=== PATIENT | female | born 1970 | race Caucasian/White ===

== ENCOUNTER → 2017-11-10 08:28 | Outpatient (CLI) | payer OTHER, SELFPAY ==
--- NOTE | 2017-11-10 08:39 | BI_ITS ---
MAMMOGRAPHY - BILATERAL SCREENING 3-D LUIS FELIPE SYNTHESIS REASON FOR EXAM: Female, 47 years old. Bilateral Screening 3-D tomosynthesis PERTINENT HISTORY: No significant family history. TECHNIQUE: 2-D mammograms and 3-D Luis Felipe synthesis of the breast (s) were performed. CAD was performed. COMPARISON: 11/07/2016 FINDINGS: The breast composition is composed of scattered fibroglandular density. Scattered benign calcifications are seen. No dense spiculated masses or suspicious microcalcifications are identified. No architectural distortion is identified. There is no skin thickening or retraction. There has been no significant change since the prior study. BI/SCREENING MAMM (CAD), BILAT IMPRESSION: No mammographic signs of malignancy. Routine yearly mammograms recommended. ASSESSMENT CATEGORY: BIRADS Category 1: Negative. A letter regarding these results will be sent to the patient by the facility within 30 days. FOLLOW UP RECOMMENDATION: Yearly follow up mammogram recommended. (A) Approximately 10% of breast cancers are not detected by mammography. A normal mammogram should not delay biopsy of a clinically suspicious abnormality. Electronically Signed: Uday Monae MD at 8:07 EDT , Service support ,
== END ==
PROVIDERS: Family Provider Internal Medicine; PCP Internal Medicine; Visit Provider Obstetrics & Gynecology
DX: Z12.31 Encounter for screening mammogram for malignant neoplasm of breast (principal)
CPT/HCPCS: 77063; 77067

== ENCOUNTER → 2018-11-10 13:24 | Outpatient (CLI) | payer OTHER, SELFPAY ==
[2018-11-10 11:09] VITALS: BMI 20.4
== END ==
PROVIDERS: Family Provider Internal Medicine; PCP Internal Medicine; Referring Provider Obstetrics & Gynecology; Visit Provider Obstetrics & Gynecology
DX: R10.2 Pelvic and perineal pain (principal)
CPT/HCPCS: 87086; 87088

== ENCOUNTER → 2018-11-18 11:34 | Outpatient (CLI) | payer OTHER, SELFPAY ==
[2018-11-10 11:09] VITALS: BMI 20.4
--- NOTE | 2018-11-18 11:37 | BI_ITS ---
MAMMOGRAPHY - BILATERAL SCREENING REASON FOR EXAM: Female, 48 years old. Routine annual screening examination. PERTINENT HISTORY: Non-contributory. TECHNIQUE: Digital bilateral breast luis felipe (3D mammographic acquisition) in the CC and MLO projections. 2-D mediolateral oblique (MLO) and craniocaudad (CC) views of both breasts were obtained. CAD: Full Field Digital Mammography with Computer Added Detection was performed. COMPARISON: Comparison is made with prior study dated November 10, 2017 and November 07, 2016. FINDINGS: Breast Composition: The breasts are heterogeneously dense, which may obscure small masses. There are no dominant masses or suspicious calcifications. No other significant abnormalities are identified. There has been no significant change since the prior study. BI/SCREEN MAMM (CAD) W/LUIS FELIPE BILAT IMPRESSION: Stable bilateral screening mammogram. Yearly follow-up mammogram recommended. (A) ASSESSMENT CATEGORY: BIRADS Category 1: Negative. A letter regarding these results will be sent to the patient by the facility within 30 days. Approximately 10% of breast cancers are not detected by mammography. A normal mammogram should not delay biopsy of a clinically suspicious abnormality. [id number] Electronically Signed: Santiago Vargas, at 13:50 EDT , Service support ,
== END ==
PROVIDERS: Family Provider Internal Medicine; PCP Internal Medicine; Referring Provider Internal Medicine; Visit Provider Internal Medicine
DX: Z12.31 Encounter for screening mammogram for malignant neoplasm of breast (principal); Z78.0 Asymptomatic menopausal state
CPT/HCPCS: 77063; 77067

== ENCOUNTER → 2018-11-26 08:18 | Outpatient (CLI) | payer OTHER, SELFPAY ==
[2018-11-10 11:09] VITALS: BMI 20.4
--- NOTE | 2018-11-26 08:24 | BD_ITS ---
STUDY: DUAL ENERGY X-RAY ABSORPTIOMETRY / DXA REASON FOR EXAM: Female, 48 years old. Early menopause. Loss of height. TECHNIQUE: Bone Mineral Density (BMD) measurements of lumbar spine and bilateral hips were obtained. COMPARISON: Comparison is made with prior study dated November 01, 2015. FINDINGS: Lumbar Spine (L1-L4): g/cm2 (1.073) / T-score (-0.9) / Z-score (-0.5) Findings are suggestive of normal bone density with a low fracture risk. Left Femur Total: g/cm2 (0.778) / T-score (-1.8) / Z-score (-1.4) Left Femoral Neck: g/cm2 (0.745) / T-score (-2.1) / Z-score (-1.3) Right Femur Total: g/cm2 (0.837) / T-score (-1.4) / Z-score (-0.9) Right Femoral Neck: g/cm2 (0.884) / T-score (-1.1) / Z-score (-0.3) The T-Scores on the most recent prior examination were: Lumbar Spine (L1-L4): There has been worsening of bone density since the previous examination. Left Femur Total: which represents a worsening of 3.4%. Right Femur Total: which represents a worsening of 3%. BD/Dexa Bone Density Study IMPRESSION: The patient is considered osteopenic as outlined below according to World Jeff Organization (WHO) criteria with a moderate fracture risk. There has been worsening of bone density since the previous examination. Reference Information: The T-score is the number of standard deviations above or below the standard which is normal for young adults at their peak bone mineral density. The World Health Organization (WHO) interprets the T-scores as follows: Above -1 Normal bone density Between -1 and -2.5 Osteopenia Equal to / or below -2.5 Osteoporosis As a practical clinical guideline, osteopenia may be graded as follows: Mild -1 through -1.5 Moderate -1.6 through -2.0 Severe -2.1 through -2.4 The Z-score is the number of standard deviations above or below age-matched controls. A Z-score of less than -1.5 would be considered abnormal. References: 1. NIH Osteoporosis and Related Bone Diseases http://www.osteo.org 2. International Society for Clinical Densitometry http://www.iscd.org 3. National Osteoporosis Foundation http://www.nof.org Electronically Signed: Santiago Vargas, at 15:11 EDT , Service support ,
== END ==
PROVIDERS: Family Provider Internal Medicine; PCP Internal Medicine; Referring Provider Internal Medicine; Visit Provider Internal Medicine
DX: Z78.0 Asymptomatic menopausal state (principal); M85.80 Other specified disorders of bone density and structure, unspecified site
CPT/HCPCS: 77080

== ENCOUNTER 2019-06-15 17:39 | Observation (INO) | payer OTHER, SELFPAY ==
[2019-05-31 13:37] VITALS: BMI 20.4
[2019-06-15 17:41] VITALS: BP 152/53; PULSE 83; RESP 20; TEMP 37.4; O2SAT 100; BMI 22.8
--- NOTE | 2019-06-15 17:59 | MRI_ITS ---
HISTORY: Episodes of low back pain on and off for 30 years. Most severe today. Urinary retention. Technique: Sagittal T1-T2 and STIR axial T1 and T2-weighted images were obtained through the lumbar spine. Comparison study is an x-ray of the lumbar spine from February 22, 2015. Additionally, the patient has had a CT scan of the abdomen and pelvis which provide sagittal 2-D reformats. Findings: Bony alignment is normal. Vertebral body height is normal. Some marrow edema is present within the abutting endplates at the L4-L5 level. Disc height and vertebral body height are normal except at the L3-L4 and L4-L5 intervertebral disc space levels. At those 2 levels there is loss of disc height and disc desiccation. 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 The conus medullaris is at the T12-L1 level. The gallbladder remains. The kidneys are without hydronephrosis. Visualized portions of the abdominal aorta is without aneurysm. Bowel gas pattern is normal. No adenopathy. At the L3-L4 level facet arthropathy, ligamentum flavum thickening, and disc bulge cause mild spinal canal stenosis. At the L4-L5 level facet arthropathy, ligamentum thickening cause minimal spinal canal stenosis. MRI/Spine Lumbar (Routine) IMPRESSION: Degenerative disc disease at the L3-L4 and L4-L5 levels. Facet arthropathy and ligamentum thickening contribute with this degenerative disc disease cause mild spinal canal stenosis at the L3-L4 level. No neural impingement perceived. Ongoing marrow edema indicative of current inflammatory disease at the L4-L5 level. at 2030 Reported and signed by: Chino Stover MD Electronically Signed: Chino Stover MD at 20:29 EST Tel , Service support ,
[2019-06-15] MEDS: HYDROmorphone 1 MG/ML Syringe IV (18:18)
[2019-06-15] MEDS: Ondansetron 4 MG/2 ML Vial IV ×2 (18:18→21:06)
[2019-06-15] MEDS: Orphenadrine 60 MG/2 ML Ampul IV (18:19)
[2019-06-15] MEDS: Ketorolac 15 MG/ML Vial IV (18:19)
[2019-06-15 18:23] LABS: Absolute Lymphocyte Count 1.43 X10^3/uL (0.83-4.51); Basophil# 0.02 X10^3/uL; Basophil% 0.2 % (0-1); Hematocrit 41.1 % (37-47); Hemoglobin 14.1 g/dL (12.0-15.0); Lymphocyte # 1.43 X10^3/ul (4.0); Lymphocyte % 15.8 % (19-41); Mean Corp Hgb Conc 34.3 g/dL (32-36); Mean Corpuscular Hgb 31.1 pg (27.0-32.0); Mean Corpuscular Volume 90.7 fL (81-99); Monocyte# 0.57 X10^3/uL; Monocyte% 6.3 % (0-10); NRBC Flagged by Analyzer 0 % (0-5); Neutrophil # 7.02 X10^3/uL (2.7-7.7); Neutrophil % 77.4 % (47-70); Platelet Count 323 K/mm3 (150-450); RBC Distribution Width CV 10.9 % (11.6-14.6); RBC Distribution Width SD 36.1 fl (35.1-43.9); Red Blood Count 4.53 M/mm3 (4.2-5.4); White Blood Count 9.1 K/mm3 (4.4-11.0)
[2019-06-15 18:35] LABS: Anion Gap 6 (5-15); BUN 9 mg/dL (7-18); BUN/Creat Ratio 10.6 RATIO (10-20); Calcium,Total 9.2 mg/dL (8.5-10.1); Chloride 110 mmol/L (98-107); Creatinine, Serum 0.85 mg/dL (0.55-1.02); EST Glomerular Filtration Rate 75 mL/min (>60); Est Glom Filt Rate - Afr Amer 91 mL/min (>60); Glucose 99 mg/dL (74-106); Potassium 3.6 mmol/L (3.5-5.1); Sodium Level 139 mmol/L (136-145)
--- NOTE | 2019-06-15 20:40 | ED.DCSUM_ITS ---
- ER Visit Summary Date of Service: 06/15/19 Chief Complaint: Back Pain History of Present Illness: The patient is a [address] Bray. She reports that she has back pain that began this morning. Initially it was a sharp pain it is gotten much worse is now sharp and stabbing. Is 10 on 10 at worst 9-10 currently. Is worsened by movement. She is taken muscle relaxant, ibuprofen, Percocet without relief. She denies any ration to her legs. No numbness or weakness in her legs. However, she reports that she is been unable to urinate. She has not had any fecal incontinence. She denies any groin numbness. Patient denies any recent injury. No fall, MVA, or change in activity. She has no red flags. Physical Examination: Vitals: Stable. Afebrile. General: A&O x 3. NAD. Cardiovascular exam: Regular rate and rhythm, no murmur, rub or gallop. Respiratory exam: Clear to auscultation bilaterally. No wheezes or stridor. Abdominal exam: Soft, nontender, nondistended, normal bowel sounds. No peritoneal signs. Back: Diffuse moderate tenderness to palpation over the lumbar spine and the paraspinous musculature in the lumbar region. No point tenderness. Negative straight leg bilaterally. 5/5 DF, PF, EHL bilaterally. Normal sensation to light touch throughout. Extremity: No clubbing, cyanosis, or edema. Test Results: CBC shows segmented neutrophils 77 lymphocytes of 16. Chem-7 shows a chloride of 110. LFTs are normal. Sed rate is 5. CRP is less than 2.9. Clinical Impression(s) from Imaging Studies Lumbar Spine MRI 06/15/19 17:59 IMPRESSION: Degenerative disc disease at the L3-L4 and L4-L5 levels. Facet arthropathy and ligamentum thickening contribute with this degenerative disc disease cause mild spinal canal stenosis at the L3-L4 level. No neural impingement perceived. Ongoing marrow edema indicative of current inflammatory disease at the L4-L5 level. at 2030 Reported and signed by: Chino Stover MD Electronically Signed: Chino Stover MD at 20:29 EST Tel , Service support , Emergency Department Course and Treatment: Patient was given Dilaudid, Norflex, and Toradol IV. She is still unable to even attempt to move. She was given morphine IV and Valium p.o. She still is unable to get out of bed. The catheter was placed and 1200 cc of urine returned. Treatment Plan: The patient was discussed with . She will be admitted to the hospital for further evaluation and treatment. Disposition: Admitted in improved condition. Impression: 1. Intractable low back pain. 2. Urinary retention. This note was generated with [employer] dictation software. It may contain incorrect words, spelling, and punctuation that were not noted in review of the chart prior to signing ED Disposition - Plan for ED Patient: Disposition: Home or Assisted Living Instructions: BACK SPASM, No Trauma Prescriptions: Naproxen [Naprosyn] 500 mg PO BID #14 tab Prescription Printed Oxycodone HCl/Acetaminophen [Percocet 5/325] 1 tab PO Q6H PRN PRN 5 Days #20 tab PRN Reason: Pain Score 6-10/10 Prescription Printed Diazepam [Valium] 5 mg PO Q8 PRN #10 tab PRN Reason: Muscle Spasm Prescription Printed Referrals: Elizabeth Lantigua, [Primary Care Provider] - 3-5 Days if not improving
[2019-06-15 21:06] VITALS: BP 126/55; PULSE 79; RESP 14; O2SAT 97
[2019-06-15] MEDS: Morphine 4 MG/ML Syringe IV (21:06)
--- NOTE | 2019-06-15 21:38 | ED.RN ---
THIS RN WENT TO ASSIST PATIENT UP. PT IS UNABLE TO SIT UP WITHOUT INTENSE PAIN AND BACK SPASMS. PT REMOVED FROM DISCHARGE STATUS AND PLACED BACK ON THE BOARD. DR. GALLO NOTIFIED
[2019-06-15 22:28] LABS: Erythrocyte Sedimentation Rate 5 mm/hr (0-30)
[2019-06-15 23:03] LABS: AST(SGOT) 27 U/L (15-37); Alanine Aminotransfer ALT/SGPT 37 U/L (13-56); Albumin, Serum 4.6 g/dL (3.2-5.0); Alkaline Phosphatase 75 U/L (45-117); Bilirubin, Direct 0.13 mg/dL (0.00-0.30); CRP < 2.90 mg/L (0.0-3.0); Globulin 3.6 g/dL (2.2-4.2); Protein, Total 8.2 g/dL (6.4-8.2)
[2019-06-15] MEDS: diazePAM 5 MG Tablet PO (23:03)
--- NOTE | 2019-06-16 00:19 | HP.PCM_ITS ---
History of Present Illness Date of Admission: 06/16/19 Chief Complaint: intractable back pain The patient is a 49 year old F with a PMH as outlined, who was admitted via the ED on 06/16/2019 via the ED with a complaint of back pain. Back pain started in the early hours of the morning of admission. It became so severe that she could not get out of bed without aggravating the back pain. She denied any numbness or tingling in her lower extremities or any weakness. She denied any fever chills, nausea vomiting. She states she has had back pain like this in the past but has not had such a severe episode in a long time. 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 On admission in the ED, temperature of 99.3 Fahrenheit with blood pressure of 126/55, pulse rate of 79 and respiratory rate of 14. Chemistry was unremarkable. CBC was also unremarkable and ESR and CRP were not elevated. Lumbar spine MRI showed degenerative disc disease at the L3-L4 and L4-L5 levels with facet arthropathy and ligamentum thickening with mild spinal canal stenosis at L3-L4 level. There was ongoing marrow edema indicating recurrent inflammatory disease at the L4-L5 level. ED doctor did discuss findings of marrow edema with the radiologist, who thought it was not an uncommon finding for patients 50 years and older. She is being admitted to be managed for intractable back pain. 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 Endometriosis N80.9 Raynaud's disease I73.00 Allergies Sulfa (Sulfonamide Antibiotics) Allergy (Verified 06/15/19 17:44) Rash Home Medications: Ambulatory Orders Medication Instructions Recorded multivitamin 1 tab PO QDAY 10/01/17 rosuvastatin 10 mg tablet 10 mg PO DAILY 11/10/18 estradiol 0.0375 mg/24 hr See Rx Instructions .ROUTE 05/31/19 semiweekly transdermal patch .COMPLEX #24 patch Diazepam [Valium] 5 mg PO Q8 PRN #10 tab 06/15/19 Naproxen [Naprosyn] 500 mg PO BID #14 tab 06/15/19 Oxycodone HCl/Acetaminophen 1 tab PO Q6H PRN PRN 5 Days #20 tab 06/15/19 [Percocet 5/325] Surgical History: Surgical History (Last Reviewed 05/31/19 @ 13:35 by Marion Morales) Status post total abdominal hysterectomy Z90.710 zhane bso Psychiatric History: No pertinent psych hx [employer] M[employer]ATOR History: endometriosis Lives: Spouse/ Significant Other Smoking Status: Never smoker Alcohol: None Drugs: None - *Family History Maternal History Items: No pertinent history Paternal History Items: No pertinent history Review of Systems Constitutional: Denies: Chills, Fever, Malaise, Weakness, Weight Change, Fatigue Eyes: Denies: Blurred vision HEENT: Denies: Head Aches, Sinus Congestion, Sinus Drainage Cardiovascular: Denies: Chest Pain, Palpitations Respiratory: Denies: Cough, Shortness of Breath, Shortness of breath at rest, Shortness of breath upon exertion, Sputum production Gastrointestinal: Denies: Abdominal Pain, Nausea, Vomiting Genitourinary: Denies: Dysuria Musculoskeletal: Reports: Back Pain. Denies: Joint Pain, Joint Tenderness Skin: Denies: Rash, Wounds Neurological: Denies: Numbness, Tingling, Focal weakness Psychiatric: Denies: Anxiety, Depression, Homicidal Ideations, Suicidal Ideations Hematologic/ Lymphatic: Denies: Easy Bruising, Easy Bleeding VTE Information - Inpt Only VTE Present on Admission: No VTE Pharm Prophylaxis ordered?: Yes - Physical Exam Vitals/I&O's: Vital Signs Temp Pulse Resp BP Pulse Ox 99.3 F H 79 14 126/55 H 97 06/15/19 17:41 06/15/19 21:06 06/15/19 21:06 06/15/19 21:06 06/15/19 21:06 Oxygen Delivery Method Room Air Weight: 145 lb 15.136 oz Body Mass Index (BMI) 22.8 General: Alert, Oriented x3, Cooperative, No apparent distress HEENT: Atraumatic, PERRLA, EOMI, Normocephalic Oral: Dry Mucosa Neck: Supple, No JVD, Negative Carotid Bruits Lungs: Clear to auscultation, Normal air movement Cardiovascular: Regular rate, Regular Rhythm, Normal S1, Normal S2, No murmurs Abdomen: Bowel Sounds Present, Soft, Non Tender Extremities: No clubbing, No cyanosis, No edema, Capillary Refill Less than 3 Seconds Skin: No rashes, No breakdown Musculoskeletal: No Tenderness to Palpation of Joints or Extremities, - - unable to assess for back pain as patient said it would be too painful for her to even try and sit up or turn to her side. Lymphatic: No Cervical, Supraclavicular, or Inguinal Adenopathy Neurological: Cranial nerves II-XII grossly intact, Neuro grossly intact, Motor Exam 5/5 strength throughout Psych/Mental Status: Normal Affect, Appropriate, Alert and oriented to time, place, person, mood and affect Laboratory Results 06/15/19 18:15: WBC 9.1, RBC 4.53, Hgb 14.1, Hct 41.1, MCV 90.7, MCH 31.1, MCHC 34.3, RDW Std Deviation 36.1, RDW Coeff of Sigifredo 10.9 L, Plt Count 323, MPV 10.0, Immature Gran % (Auto) 0.300, Neut % (Auto) 77.4 H, Lymph % (Auto) 15.8 L, [place] % (Auto) 6.3, Eos % (Auto) 0.0, Baso % (Auto) 0.2, Absolute Neuts (auto) 7.0, Absolute Lymphs (auto) 1.43, Nucleated RBC % 0 06/15/19 18:15: Sodium 139, Potassium 3.6, Chloride 110 H, Carbon Dioxide 23.0, Anion Gap 6, BUN 9, Creatinine 0.85, Estim Creat Clear Calc 77.00, Est GFR (MDRD) Af Amer 91, Est GFR (MDRD) Non-Af 75, BUN/Creatinine Ratio 10.6, Glucose 99, Calcium 9.2 06/15/19 18:15: Total Bilirubin 0.40, Direct Bilirubin 0.13, AST 27, ALT 37, Alkaline Phosphatase 75, C-React Prot Ext Range < 2.90, Total Protein 8.2, Albumin 4.6, Globulin 3.6 06/15/19 22:17: ESR 5 Diagnostic Data Lumbar Spine MRI 06/15/19 17:59 IMPRESSION: Degenerative disc disease at the L3-L4 and L4-L5 levels. Facet arthropathy and ligamentum thickening contribute with this degenerative disc disease cause mild spinal canal stenosis at the L3-L4 level. No neural impingement perceived. Ongoing marrow edema indicative of current inflammatory disease at the L4-L5 level. at 2030 Reported and signed by: hCino Stover MD Electronically Signed: Chino Stover MD at 20:29 EST Tel , Service support , Assessment/Plan 49-year-old patient man admitted with a complaint of intractable back pain. 1. Intractable back pain * likely due to arthritis and spinal stenosis * MRI of lumbar spine showed degenerative disease at L3-:4 and L4-L5, as well as facet arthropathy and ligamentum thickening, with mild spinal canal stenosis at L3-L4, as well as ongoing marrow edema indicative of inflammatory disease at L4-L5 * ESR and CRP are not elevated * patient has mildly elevated wbc of 13, and temperature of 99.3; there is no evidence of discitis on MRI * says she has had such pain before, which improved with PT/OT * admit to [facility]; * IV morphine prn, PO tylenol prn * fall precautions * consult PT/OT * 2. Hyperlipidemia: On rosuvastatin DVT prophylaxis: SCDs Code Visit OBSV E&M: [id number] Initial observation care L2
[2019-06-16 01:03] VITALS: BP 125/65; PULSE 85; RESP 20; TEMP 36.7; O2SAT 100
[2019-06-16 01:14] VITALS: BMI 22.9
[2019-06-16] MEDS: Morphine 4 MG/ML Syringe IV (01:16)
[2019-06-16] MEDS: 0.9% Saline Lock 10 ML Syringe IV ×3 (01:55→09:46)
[2019-06-16] MEDS: Ketorolac 30 MG/ML Syringe IV ×2 (01:56→08:57)
[2019-06-16 03:31] VITALS: BMI 22.3
[2019-06-16] MEDS: oxyCODONE 5 MG Tablet 10 MG PO ×3 (04:21→17:21)
[2019-06-16 05:54] VITALS: BP 105/50; PULSE 63; RESP 16; TEMP 36.7; O2SAT 99
[2019-06-16 06:36] LABS: Absolute Lymphocyte Count 1.28 X10^3/uL (0.83-4.51); Absolute Neutrophil Count 6.1 X10^3/uL (2.0-7.7); Basophil# 0.02 X10^3/uL; Basophil% 0.2 % (0-1); Eosinophil# 0.02 X10^3/uL; Eosinophils% 0.2 % (0-5); Hematocrit 37.8 % (37-47); Hemoglobin 12.3 g/dL (12.0-15.0); Lymphocyte # 1.28 X10^3/ul (4.0); Lymphocyte % 15.8 % (19-41); Mean Corp Hgb Conc 32.5 g/dL (32-36); Mean Corpuscular Hgb 30.9 pg (27.0-32.0); Monocyte# 0.61 X10^3/uL; Monocyte% 7.5 % (0-10); NRBC Flagged by Analyzer 0 % (0-5); Neutrophil # 6.13 X10^3/uL (2.7-7.7); Neutrophil % 76.1 % (47-70); Platelet Count 275 K/mm3 (150-450); Red Blood Count 3.98 M/mm3 (4.2-5.4); White Blood Count 8.1 K/mm3 (4.4-11.0)
[2019-06-16 07:01] LABS: Anion Gap 6 (5-15); BUN 11 mg/dL (7-18); BUN/Creat Ratio 15.1 RATIO (10-20); Calcium,Total 8.1 mg/dL (8.5-10.1); Chloride 112 mmol/L (98-107); Creatinine, Serum 0.73 mg/dL (0.55-1.02); EST Glomerular Filtration Rate 90 mL/min (>60); Est Glom Filt Rate - Afr Amer 109 mL/min (>60); Estimated Creatinine Clearance 89.66 ml/min; Glucose 95 mg/dL (74-106); Potassium 3.6 mmol/L (3.5-5.1); Sodium Level 141 mmol/L (136-145)
[2019-06-16 07:49] VITALS: BP 115/62; PULSE 62; RESP 14; TEMP 37; O2SAT 98
[2019-06-16] MEDS: Acetaminophen 325 MG Tablet 650 MG PO ×2 (08:57→23:36)
--- NOTE | 2019-06-16 09:28 | PCM.PN.HOSP ---
Reason for Visit: Patient has history of chronic back pain. Her last admission secondary to back pain was about 3 to 4 years ago. MRI reviewed and discussed with the patient. Vitals/I&O's: Vital Signs Temp Pulse Resp BP Pulse Ox 98.6 F 62 14 115/62 98 06/16/19 07:49 06/16/19 07:49 06/16/19 07:49 06/16/19 07:49 06/16/19 07:49 Oxygen Delivery Method Room Air Weight: 142 lb 10.225 oz Body Mass Index (BMI) 22.3 Intake and Output for Last 24 Hours 06/14/19 06/15/19 06/16/19 23:59 23:59 23:59 Intake Total 60 / 60 Output Total 150 / 150 Balance -90 / -90 General: Alert, Oriented x3, Cooperative HEENT: Atraumatic, PERRLA, EOMI, Normocephalic Neck: Supple, No JVD, Negative Carotid Bruits Lungs: Clear to auscultation, Normal air movement, No rhonchi, No wheeze, No rales Cardiovascular: Regular rate, Regular Rhythm, Normal S1, Normal S2, No murmurs Abdomen: Bowel Sounds Present, Soft, Non Tender, Non-Distended Extremities: No edema, Capillary Refill Less than 3 Seconds Skin: No rashes, No breakdown Musculoskeletal: No Tenderness to Palpation of Joints or Extremities Neurological: Cranial nerves II-XII grossly intact Psych/Mental Status: Normal Affect, Appropriate Laboratory Results 06/15/19 18:15: WBC 9.1, RBC 4.53, Hgb 14.1, Hct 41.1, MCV 90.7, MCH 31.1, MCHC 34.3, RDW Std Deviation 36.1, RDW Coeff of Sigifredo 10.9 L, Plt Count 323, MPV 10.0, Immature Gran % (Auto) 0.300, Neut % (Auto) 77.4 H, Lymph % (Auto) 15.8 L, [place] % (Auto) 6.3, Eos % (Auto) 0.0, Baso % (Auto) 0.2, Absolute Neuts (auto) 7.0, Absolute Lymphs (auto) 1.43, Nucleated RBC % 0 06/15/19 18:15: Sodium 139, Potassium 3.6, Chloride 110 H, Carbon Dioxide 23.0, Anion Gap 6, BUN 9, Creatinine 0.85, Estim Creat Clear Calc 77.00, Est GFR (MDRD) Af Amer 91, Est GFR (MDRD) Non-Af 75, BUN/Creatinine Ratio 10.6, Glucose 99, Calcium 9.2 06/15/19 18:15: Total Bilirubin 0.40, Direct Bilirubin 0.13, AST 27, ALT 37, Alkaline Phosphatase 75, C-React Prot Ext Range < 2.90, Total Protein 8.2, Albumin 4.6, Globulin 3.6 06/15/19 22:17: ESR 5 06/16/19 06:14: WBC 8.1, RBC 3.98 L, Hgb 12.3, Hct 37.8, MCV 95.0, MCH 30.9, MCHC 32.5 D, RDW Std Deviation 38.0, RDW Coeff of Sigifredo 11.0 L, Plt Count 275, MPV 10.0, Immature Gran % (Auto) 0.200, Neut % (Auto) 76.1 H, Lymph % (Auto) 15.8 L, [place] % (Auto) 7.5, Eos % (Auto) 0.2, Baso % (Auto) 0.2, Absolute Neuts (auto) 6.1, Absolute Lymphs (auto) 1.28, Nucleated RBC % 0 06/16/19 06:14: Sodium 141, Potassium 3.6, Chloride 112 H, Carbon Dioxide 23.0, Anion Gap 6, BUN 11, Creatinine 0.73, Estim Creat Clear Calc 89.66, Est GFR (MDRD) Af Amer 109, Est GFR (MDRD) Non-Af 90, BUN/Creatinine Ratio 15.1, Glucose 95, Calcium 8.1 L Current Medications Acetaminophen (Tylenol) 650 mg PO Q6H PRN PRN PRN Reason: Pain Score 1-10/Temp > 100.7 F Atorvastatin Calcium (Lipitor) 20 mg PO DAILY@2200 SHALONDA Glucagon () 1 mg IM .X1 PRN PRN Reason: Hypoglycemia Dextrose (Dextrose 10%-Water) 250 mls @ 999 mls/hr IV .Q16M PRN; Protocol PRN Reason: HYPOGLYCEMIA Ketorolac Tromethamine (Toradol (Bkc)) 30 mg IV Q6H PRN PRN PRN Reason: Pain Score 1-10/10 Stop: 06/20/19 15:39 Last Admin: 06/16/19 01:56 Dose: 30 mg Documented by: Morphine Sulfate () 4 mg IV Q3H PRN PRN PRN Reason: Pain Score 6-1010 Last Admin: 06/16/19 01:16 Dose: 4 mg Documented by: Multivitamins (Multivitamin) 1 tablet PO DAILYCM SHALONDA Non-Formulary Medication (Estradiol) 0 patch .ROUTE .COMPLEX SHALONDA Ondansetron HCl (Zofran) 4 mg IV Q8H PRN PRN PRN Reason: NAUSEA/VOMITING Oxycodone HCl (Oxyir) 10 mg PO Q4H PRN PRN PRN Reason: Pain Score 4-510 Last Admin: 06/16/19 04:21 Dose: 10 mg Documented by: Sodium Chloride () 10 - 40 ml IV UD PRN PRN Reason: SALINE FLUSH Last Admin: 06/16/19 01:55 Dose: 20 ml Documented by: STROKE Vital Signs/Narrative: Vital Signs Temp Pulse Resp BP Pulse Ox 06/16/19 07:49 98.6 F 62 14 115/62 98 06/16/19 05:54 98.1 F 63 16 105/50 L 99 Medical Necessity - Tobacco Use Smoking Status: Never smoker Assessment/Plan 49-year-old patient man admitted with a complaint of intractable back pain. 1. Intractable back pain most likely secondary to severe muscle spasm on baseline spinal stenosis and degenerative arthritis. MRI of lumbar spine showed degenerative disease at L3-:4 and L4-L5, as well as facet arthropathy and ligamentum thickening, with mild spinal canal stenosis at L3-L4, as well as ongoing marrow edema indicative of inflammatory disease at L4-L5 ESR and CRP are not elevated patient has mildly elevated wbc of 13, and temperature of 99.3; there is no evidence of discitis on MRI IV morphine prn, PO tylenol prn fall precautions PT/OT Flexeril added. 2. Hyperlipidemia: On rosuvastatin DVT prophylaxis: SCDs Laboratory Results 06/15/19 18:15: WBC 9.1, RBC 4.53, Hgb 14.1, Hct 41.1, MCV 90.7, MCH 31.1, MCHC 34.3, RDW Std Deviation 36.1, RDW Coeff of Sigifredo 10.9 L, Plt Count 323, MPV 10.0, Immature Gran % (Auto) 0.300, Neut % (Auto) 77.4 H, Lymph % (Auto) 15.8 L, [place] % (Auto) 6.3, Eos % (Auto) 0.0, Baso % (Auto) 0.2, Absolute Neuts (auto) 7.0, Absolute Lymphs (auto) 1.43, Nucleated RBC % 0 06/15/19 18:15: Sodium 139, Potassium 3.6, Chloride 110 H, Carbon Dioxide 23.0, Anion Gap 6, BUN 9, Creatinine 0.85, Estim Creat Clear Calc 77.00, Est GFR (MDRD) Af Amer 91, Est GFR (MDRD) Non-Af 75, BUN/Creatinine Ratio 10.6, Glucose 99, Calcium 9.2 06/15/19 18:15: Total Bilirubin 0.40, Direct Bilirubin 0.13, AST 27, ALT 37, Alkaline Phosphatase 75, C-React Prot Ext Range < 2.90, Total Protein 8.2, Albumin 4.6, Globulin 3.6 06/15/19 22:17: ESR 5 06/16/19 06:14: WBC 8.1, RBC 3.98 L, Hgb 12.3, Hct 37.8, MCV 95.0, MCH 30.9, MCHC 32.5 D, RDW Std Deviation 38.0, RDW Coeff of Sigifredo 11.0 L, Plt Count 275, MPV 10.0, Immature Gran % (Auto) 0.200, Neut % (Auto) 76.1 H, Lymph % (Auto) 15.8 L, [place] % (Auto) 7.5, Eos % (Auto) 0.2, Baso % (Auto) 0.2, Absolute Neuts (auto) 6.1, Absolute Lymphs (auto) 1.28, Nucleated RBC % 0 06/16/19 06:14: Sodium 141, Potassium 3.6, Chloride 112 H, Carbon Dioxide 23.0, Anion Gap 6, BUN 11, Creatinine 0.73, Estim Creat Clear Calc 89.66, Est GFR (MDRD) Af Amer 109, Est GFR (MDRD) Non-Af 90, BUN/Creatinine Ratio 15.1, Glucose 95, Calcium 8.1 L
[2019-06-16] MEDS: Ondansetron 4 MG/2 ML Vial IV (09:46)
[2019-06-16] MEDS: Multivitamins,Therapeutic Tablet 1 TABLET PO (09:46)
[2019-06-16] MEDS: cycloBENZAPRine HCl 10 MG Tablet PO ×3 (09:51→21:04)
[2019-06-16 10:40] VITALS: BP 117/58; PULSE 72; RESP 16; TEMP 36.6
[2019-06-16 14:15] VITALS: BP 129/50; PULSE 79; RESP 16; TEMP 37.1; O2SAT 98
[2019-06-16 20:30] VITALS: BP 119/69; PULSE 78; RESP 15; TEMP 36.6; O2SAT 96
[2019-06-16] MEDS: Atorvastatin Calcium 20 MG Tablet PO (21:04)
[2019-06-17 02:30] VITALS: BP 103/59; PULSE 78; RESP 16; TEMP 36.6; O2SAT 98
[2019-06-17] MEDS: 0.9% Saline Lock 10 ML Syringe IV (06:21)
[2019-06-17] MEDS: cycloBENZAPRine HCl 10 MG Tablet PO ×2 (06:21→14:01)
[2019-06-17] MEDS: oxyCODONE 5 MG Tablet 10 MG PO ×2 (06:22→14:01)
[2019-06-17] MEDS: Ondansetron ODT 4 MG Tablet PO (06:32)
[2019-06-17 08:51] VITALS: BP 116/69; PULSE 86; RESP 16; TEMP 36.7; O2SAT 96
[2019-06-17] MEDS: Acetaminophen 325 MG Tablet 650 MG PO (09:00)
--- NOTE | 2019-06-17 10:14 | DCINST_ITS ---
You will use the following diet at home:: Regular Your food should be the consistency of: Regular Discharge Activity: May Not Drive - until she sees PCP Weight Bearing Status: Weight bearing as tolerated Call your doctor if you observe: Fever of 101 or Higher, Inability to urinate, Inability to have a bowel movement, Using more than one pad per hour, Shortness of breath, Dizziness, Fainting spells, Swelling in the ankles, Chest pain, Prolonged hiccoughing, Increased palpitations (irregular heartbeat) Instructions: BACK SPASM, No Trauma Allergies/Adverse Reactions: Allergies Sulfa (Sulfonamide Antibiotics) Allergy (Verified 06/15/19 17:44) Rash Medications to take at Discharge multivitamin 1 tab PO QDAY 10/01/17 rosuvastatin 10 mg tablet 10 mg PO DAILY 11/10/18 estradiol 0.0375 mg/24 hr semiweekly transdermal patch See Rx Instructions .ROUTE .COMPLEX #24 patch 05/31/19 Oxycodone HCl/Acetaminophen [Percocet 5/325] 1 tab PO Q6H PRN PRN 5 Days #20 tab 06/15/19 Cetirizine HCl [Zyrtec] 10 mg PO DAILY 06/16/19 Cholecalciferol (VIT D3) [Vitamin D3] 1,000 unit PO DAILY 06/16/19 Ubidecarenone [Co Q-10] 200 mg PO DAILY 06/16/19 cycloBENZAPRine HCl [Flexeril] 10 mg PO TID PRN PRN #30 tab 06/17/19 The following prescriptions were given: cycloBENZAPRine HCl [Flexeril] 10 mg PO TID PRN PRN #30 tab PRN Reason: muscle spasm Transmission Status: Pending to [id number] Oxycodone HCl/Acetaminophen [Percocet 5/325] 1 tab PO Q6H PRN PRN 5 Days #20 tab PRN Reason: Pain Score 6-10/10 Prescription Printed Primary Care Physician: Elizabeth Lantigua DO [Primary Care Provider] - 3-5 Days if not improving Please follow up with your Primary Care Physician in: IN 1-2 weeks Test Results: Test results from this visit will be discussed in further detail at your follow- up appointment, if applicable.
--- NOTE | 2019-06-17 10:15 | DS.PCM_ITS ---
Discharge Date and Diagnosis Date of Admission: 06/16/19 Date of Discharge: 06/17/19 - Primary Discharge Diagnosis Acute on chronic back pain mostly secondary to muscle spasm/degenerative lumbar spine arthritis - Secondary Discharge Diagnosis Chronic Problems (Last Reviewed 05/31/19 @ 13:35 by Marion Morales) Climacteric (Chronic) switched from estratest to estrogen patch, titrate to symptom control Hospital Course and Treatment Summary of Care Provided: The patient is a 49 year old F admitted with a complaint of intractable back pain. MRI of lumbar spine showed degenerative disease at L3-:4 and L4-L5, as well as facet arthropathy and ligamentum thickening, with mild spinal canal stenosis at L3-L4, as well as ongoing marrow edema indicative of inflammatory disease at L4-L5 1. Intractable back pain most likely secondary to severe muscle spasm on baseline spinal stenosis and degenerative arthritis. ESR and CRP are not elevated * patient has mildly elevated wbc of 13, and temperature of 99.3; there is no evidence of discitis on MRI * IV morphine prn, PO tylenol prn * fall precautions * PT/OT was done. PT recommended outpatient additional therapy. * Flexeril added. 2. Hyperlipidemia: On rosuvastatin DVT prophylaxis: SCDs Discharge medication reconciliation done. Discharge follow-up instructions completed. Discharge process discussed with the patient and all questions were answered to patient's satisfaction. Prescription was given for Flexeril. Patient has Percocet at home. Total time spent, exact 35 minutes on discharge meds reconciliation, examination, coordination of care with nurses and ancillary staff, review of imaging and blood test and discussion with the patient on follow-up instructions - Physical Exam Vitals/I&O's: Vital Signs Temp Pulse Resp BP Pulse Ox 98.1 F 86 16 116/69 96 06/17/19 08:51 06/17/19 08:51 06/17/19 08:51 06/17/19 08:51 06/17/19 08:51 Oxygen Delivery Method Room Air Weight: 142 lb 10.225 oz Body Mass Index (BMI) 22.3 Intake and Output for Last 24 Hours 06/15/19 06/16/19 06/17/19 23:59 23:59 23:59 Intake Total 860 / 860 600 / 600 Output Total 750 / 750 400 / 400 Balance 110 / 110 200 / 200 General: Alert, Oriented x3, Cooperative HEENT: Atraumatic, PERRLA, EOMI, Normocephalic Neck: Supple, No JVD, Negative Carotid Bruits Lungs: Clear to auscultation, Normal air movement, No rhonchi, No wheeze, No rales Cardiovascular: Regular rate, Regular Rhythm, Normal S1, Normal S2, No murmurs Abdomen: Bowel Sounds Present, Soft, Non Tender, Non-Distended Extremities: No edema, Capillary Refill Less than 3 Seconds Skin: No rashes, No breakdown Musculoskeletal: Arthritic Changes, Tenderness - Mild muscular tenderness around lumbar spine and paraspinal area. Neurological: Cranial nerves II-XII grossly intact Psych/Mental Status: Normal Affect, Appropriate Current Medications Acetaminophen (Tylenol) 650 mg PO Q6H PRN PRN PRN Reason: Pain Score 1-10/Temp > 100.7 F Last Admin: 06/17/19 09:00 Dose: 650 mg Documented by: Atorvastatin Calcium (Lipitor) 20 mg PO DAILY@2200 [facility] Last Admin: 06/16/19 21:04 Dose: 20 mg Documented by: Cyclobenzaprine HCl (Flexeril) 10 mg PO TID [facility] Last Admin: 06/17/19 06:21 Dose: 10 mg Documented by: Estradiol (Estradiol) 1 each TD Q4D ONE Stop: 06/19/19 15:01 Glucagon () 1 mg IM .X1 PRN PRN Reason: Hypoglycemia Dextrose (Dextrose 10%-Water) 250 mls @ 999 mls/hr IV .Q16M PRN; Protocol PRN Reason: HYPOGLYCEMIA Ketorolac Tromethamine (Toradol (Bkc)) 30 mg IV Q6H PRN PRN PRN Reason: Pain Score 1-10/10 Stop: 06/20/19 15:39 Last Admin: 06/16/19 08:57 Dose: 30 mg Documented by: Morphine Sulfate () 4 mg IV Q3H PRN PRN PRN Reason: Pain Score 6-10/10 Last Admin: 06/16/19 01:16 Dose: 4 mg Documented by: [facility] Admin: 06/17/19 09:12 Dose: Not Given Documented by: Oxycodone HCl (Oxyir) 10 mg PO Q4H PRN PRN PRN Reason: Pain Score 4-5/10 Last Admin: 06/17/19 06:22 Dose: 10 mg Documented by: Sodium Chloride () 10 - 40 ml IV UD PRN PRN Reason: SALINE FLUSH Last Admin: 06/17/19 06:21 Dose: 10 ml Documented by: Home Medications: Medications to take at Discharge multivitamin 1 tab PO QDAY 10/01/17 rosuvastatin 10 mg tablet 10 mg PO DAILY 11/10/18 estradiol 0.0375 mg/24 hr semiweekly transdermal patch See Rx Instructions .ROUTE .COMPLEX #24 patch 05/31/19 Oxycodone HCl/Acetaminophen [Percocet 5/325] 1 tab PO Q6H PRN PRN 5 Days #20 tab 06/15/19 Cetirizine HCl [Zyrtec] 10 mg PO DAILY 06/16/19 Cholecalciferol (VIT D3) [Vitamin D3] 1,000 unit PO DAILY 06/16/19 Ubidecarenone [Co Q-10] 200 mg PO DAILY 06/16/19 cycloBENZAPRine HCl [Flexeril] 10 mg PO TID PRN PRN #30 tab 06/17/19 Following Prescrptions Were Given to Patient: cycloBENZAPRine HCl [Flexeril] 10 mg PO TID PRN PRN #30 tab PRN Reason: muscle spasm Transmission Status: Sent to [facility]/pharmacy #[id number] Oxycodone HCl/Acetaminophen [Percocet 5/325] 1 tab PO Q6H PRN PRN 5 Days #20 tab PRN Reason: Pain Score 6-10/10 Prescription Printed Primary Care Physician: Elizabeth Lantigua DO [Primary Care Provider] - 3-5 Days if not improving Patient Instructions: BACK SPASM, No Trauma Medical Necessity - Tobacco Use Smoking Status: Never smoker Meaningful Use Info Meaningful Use Diagnoses (Choose all that apply): None applicable Code Visit OBSV E&M: 66629 Observation care discharge
[2019-06-17 11:07] VITALS: BP 130/66; PULSE 80; RESP 16; TEMP 37.1; O2SAT 96
== END 2019-06-17 14:14 | disposition home or self-care (01) ==
LOC: ED 18:09 → MS3 23:42
PROVIDERS: Admitting Provider Student in an Organized Health Care Education/Training Program; Emergency Provider Emergency Medicine; PCP Internal Medicine; Visit Provider Internal Medicine
DX: M62.830 Muscle spasm of back (principal); M46.86 Other specified inflammatory spondylopathies, lumbar region; G89.29 Other chronic pain; M47.896 Other spondylosis, lumbar region; Z79.899 Other long term (current) drug therapy; R33.9 Retention of urine, unspecified; I73.00 Raynaud's syndrome without gangrene; Q79.60 Ehlers-Danlos syndrome, unspecified; M48.061 Spinal stenosis, lumbar region without neurogenic claudication
CPT/HCPCS: 36415; 51702; 72148; 80048; 80076; 85025; 85652; 86140; 96374; 96375; 96376; 97162; 97530; 99218; 99285; J7030; A4216; G0378; J2405

== ENCOUNTER → 2019-11-23 10:30 | Outpatient (CLI) | payer OTHER, SELFPAY ==
[2018-11-10 11:09] VITALS: BMI 20.4
--- NOTE | 2019-11-23 10:31 | BI_ITS ---
MAMMOGRAPHY - BILATERAL SCREENING REASON FOR EXAM: Female, 49 years old. Routine annual screening examination. PERTINENT HISTORY: Non-contributory. TECHNIQUE: Digital bilateral breast luis felipe (3D mammographic acquisition) in the CC and MLO projections. 2-D mediolateral oblique (MLO) and craniocaudad (CC) views of both breasts were obtained. CAD: Full Field Digital Mammography with Computer Added Detection was performed. COMPARISON: Comparison is made with prior study dated 11/18/2018 and 11/10/2017. FINDINGS: Breast Composition: The breasts are heterogeneously dense, which may obscure small masses. There are no dominant masses or suspicious calcifications. No other significant abnormalities are identified. There has been no significant change since the prior study. BI/SCREEN MAMM (CAD) W/LUIS FELIPE BILAT IMPRESSION: Stable bilateral screening mammogram. Yearly follow-up mammogram recommended. (A) ASSESSMENT CATEGORY: BIRADS Category 1: Negative. A letter regarding these results will be sent to the patient by the facility within 30 days. Approximately 10% of breast cancers are not detected by mammography. A normal mammogram should not delay biopsy of a clinically suspicious abnormality. [id number] Electronically Signed: Santiago Vargas, at 12:28 EDT , Service support ,
== END ==
PROVIDERS: PCP Internal Medicine; Referring Provider Obstetrics & Gynecology; Visit Provider Obstetrics & Gynecology
DX: Z12.31 Encounter for screening mammogram for malignant neoplasm of breast (principal)
CPT/HCPCS: 77063; 77067

== ENCOUNTER 2020-01-24 09:00 | Outpatient (RCR) | payer OTHER, SELFPAY ==
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
--- NOTE | 2019-11-12 10:00 | HP.PTREVAL_ITS ---
Dr. Elizabeth Gillespie, DO, It has been my pleasure to treat MODESTO SPAIN over the last 4 visits for MUSCLE SPASMS AND LBP. Please see the progress note below for an update on the physical therapy plan of care! Subjective: PATIENT REPORTS SHE HAD ANOTHER EPISODE AND HAD TELEHEALTH WITH DR. GILLESPIE ABOUT RETURNING TO PT. NOW GETTING PAIN DOWN THE LEFT LEG TOO TO THE CALF. ABOUT 2 WEEKS AGO WAS JUST STEPPING OUT OF THE SHOWER AND HEARD AND FELT A POP IN HER LOW BACK. PATIENT REPORTS SHE HAS BEEN REALLY CAREFUL SINCE BECAUSE SHE DOESN'T WANT TO END UP BACK IN THE HOSPITAL. PATIENT REPORTS AQUATIC THERAPY SEEMED TO BE HELPING BEFORE SHE STOPPED COMING DUE TO THE VIRUS. PATIENT REPORTS THE PAIN HAS STARTED GOING UP HER SPINE NOW TOO. Objective/Function: PATIENT WAS SEEN TODAY FOR RE-ASSESSMENT OF PROGRESS TOWARD THE SET PT GOALS AND THE NEED FOR FURTHER PHYSICAL THERAPY VS READINESS FOR DISCHARGE. UPON EXAM TODAY: PATIENT AMBULATES INDEP'LY INTO PT TODAY WITH GUARDED INDEP GAIT WITHOUT AD OR LOB. CHAY LE LIGHT TOUCH SENSATION IS INTACT AND SYMMETRICAL. CHAY LE DTR'S ARE 2/3. CHAY HIP WEAKNESS GRADED 4/5 RIGHT AND 4-/5 LEFT. CHAY KNEE AND ANKLE STRENGTH 5/5 BUT TESTING WAS PERFORMED CAREFULLY DUE TO PATIENT APPREHENSION AND TESTING OF LEFT KNEE FLEXION PROVOKES LBP. Dural Signs: POSITIVE CHAY LE'S. Lumbar mvmt loss: flex - MIN. ext - MOD TO STEFF. R SG - MOD. L SG - MOD. PATIENT C/O LOW BACK TIGHTNESS AND MILD INCREASED PAIN WITH LUMBAR ROM TESTING ALL PLANES. Core strength: POOR. Palpation: TENDERNESS WITH PALPATION OF L345S1 REGIONS. INCREASED MUSCLE TONE PARASPINALS Plan Plan: AQUATIC THERPAY FOR PAIN RELIEF, POSTURE CORRECTION/STRENGTHENING, INSTRUC TION IN APPROPRIATE BODY MECHANICS AND ACTIVITY MODIFICATIONS. DLS STARTING WITH A NEUTRAL SPINE PROGRESSING ROM TOLERATED. CHAY LE ROM, STRETCHING AND STRENGTHENING. HEP INSTRUCTION. Goals Goal 1:: DECREASE C/O BACK AND RIGHT LE SX'S. Goal Time Frame: 4-6 Weeks Goal 2:: IMPROVE LIFTING, WALKING, SITTING, STANDING, SLEEP, SOCIAL LIFE, TRAVEL, WORK AND HOMEMAKING FUNCTION. Goal Time Frame: 4-6 Weeks Goal 3:: INSTRUCT IN PROPHYLAXIS Goal Time Frame: 4-6 Weeks Anticipated Interventions Patient/Client Instruction: Educate patient on: Condition, Plan of Care, Risk Factors, Benefits of Fitness Program For the Purpose of:: To improve self management Therapeutic Exercise to Include: Strength training, Body mechanics, Postural training, Flexibilty training, Neuromotor development, In an aquatic setting, Dynamic Lumbar Stabilization For the Purpose of:: To decrease pain, To decrease swelling/inflammation, To increase ROM, To improve muscle performance and motor function, To increase tolerance to activity/condition/position, To improve ability of physical actions for home/community/work/leisure Please do not hesitate to contact me at [phone] by phone or if you have questions or concerns regarding this new plan of care! Sincerely, Mariah Alfonso, PT, Cert MDT
--- NOTE | 2019-12-15 12:14 | HP.PTREVAL ---
Dr. Elizabeth Lantigua, DO, It has been my pleasure to treat MODESTO SPAIN over the last 14 visits for MUSCLE SPASMS AND LBP. Please see the progress note below for an update on the physical therapy plan of care! 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 STATES SHE CAN GO TO THE GROCERY STORE AND SHE CAN LIFT HER GRANDDAUGHTER. GOING UP AND DOWN STEPS OK. HAS NOT BEEN PUSHING THE WALKING. ENJOYS THE POOL. Objective/Function: PATIENT WAS SEEN TODAY FOR RE-ASSESSMENT OF PROGRESS TOWARD THE SET PT GOALS AND THE NEED FOR FURTHER PHYSICAL THERAPY VS READINESS FOR DISCHARGE. PATIENT IS MAKING GREAT PROGRESS TOWARD ALL PT GOALS AND IS A GOOD CANDIDATE TO CONTINUE PT BASED ON PROGRESS MADE AND ROOM FOR FURTHER IMPROVEMENT. INSTRUCTED PATIENT IN A WALKING PROGRAM AND DISCUSSED INDEP WATER EX ONE TIME A WEEK WHILE DECREASING FROM 3 TO 2 TIMES A WEEK IN PT. PATIENT IS GOING TO EXPLORE POOL MEMBERSHIP AT FACILITY OF HER CHOICE. UPON EXAM TODAY: CHAY LE LIGHT TOUCH SENSATION IS INTACT AND SYMMETRICAL. CHAY HIP WEAKNESS GRADED 4/5 RIGHT AND 4-/5 LEFT. CHAY KNEE AND ANKLE STRENGTH 5/5 - PATIENT MUCH LESS APPREHENSIVE ABOUT TESTING TODAY AND DENIES INCREASED PAIN WITH TESTING. Dural Signs: NEGATIVE CHAY LE'S. Lumbar mvmt loss: flex - NIL. ext - MOD. R SG - MIN. L SG - MIN. PATIENT REPORTS FEELING FINE WITH LUMBAR ROM TESTING TODAY. Core strength: FAIR. Plan Plan: DECREASE TO 2 TIMES A WEEK X 4 WEEKS WHILE PATIENT CONSIDERS INDEP POOL EX ONE TIME A WEEK. PROGRESS HEP TOLERATED. AQUATIC THERPAY FOR PAIN RELIEF, POSTURE CORRECTION/STRENGTHENING, INSTRUCTION IN APPROPRIATE BODY MECHANICS AND ACTIVITY MODIFICATIONS. DLS STARTING WITH A NEUTRAL SPINE PROGRESSING ROM TOLERATED. CHAY LE ROM, STRETCHING AND STRENGTHENING. HEP INSTRUCTION. Goals Goal 1:: DECREASE C/O BACK AND RIGHT LE SX'S. Goal Time Frame: 4-6 Weeks Goal Progress: Progressing Goal 2:: IMPROVE LIFTING, WALKING, SITTING, STANDING, SLEEP, SOCIAL LIFE, TRAVEL, WORK AND HOMEMAKING FUNCTION. Goal Time Frame: 4-6 Weeks Goal Progress: Progressing Goal 3:: INSTRUCT IN PROPHYLAXIS Goal Time Frame: 4-6 Weeks Goal Progress: Progressing Anticipated Interventions Patient/Client Instruction: Educate patient on: Condition, Plan of Care, Risk Factors, Benefits of Fitness Program For the Purpose of:: To improve self management Therapeutic Exercise to Include: Strength training, Body mechanics, Postural training, Flexibilty training, Neuromotor development, In an aquatic setting, Dynamic Lumbar Stabilization For the Purpose of:: To decrease pain, To decrease swelling/inflammation, To increase ROM, To improve muscle performance and motor function, To increase tolerance to activity/condition/position, To improve ability of physical actions for home/community/work/leisure Please do not hesitate to contact me at [phone] by phone or if you have questions or concerns regarding this new plan of care! Sincerely, Mariah Alfonso, PT, Cert MDT
--- NOTE | 2020-01-24 09:29 | HP.PTDCSUM_ITS ---
It has been my pleasure to treat MODESTO SPAIN referred by Dr. Elizabeth Gillespie, DO, with the diagnosis of MUSCLE SPASMS AND LBP for a total of 21 visit(s). Discharge Date: 01/24/20 Please see the following information for a summary of their discharge status. Subjective: PATIENT REPORTS SHE CAN DO HER STUFF AROUND THE HOUSE NOW WITHOUT PAIN. STATES SHE CAN WALK FOR ABOUT A HALF HOUR AND HAS MORE STRENGTH. LESS FEAR OF THE PAIN RETURNING. HAS NOT HAD PAIN FOR AT LEAST A COUPLE WEEKS NOW. DOES STILL GET ACHY IF SHE HAS TO SIT IN THE CAR A LONG TIME AND IS STILL HESITANT TO TRY A FEW THINGS. PATIENT REPORTS SHE HAS REALLY ENJOYED PT BUT SHE DOES NOT THINK SHE NEEDS US ANYMORE. Lumbar Spine Pain Intensity (Out of 10): 0 RLE Pain Intensity (Out of 10): 0 LLE Pain Intensity (Out of 10): 0 L Shoulder Pain Intensity (Out of 10): 0 % Improvement: 95 Objective/Function: PATIENT WAS SEEN TODAY FOR RE-ASSESSMENT OF PROGRESS TOWARD THE SET PT GOALS AND THE NEED FOR FURTHER PHYSICAL THERAPY VS READINESS FOR DISCHARGE. PATIENT HAS MADE GREAT PROGRESS WITH PT, IS INDEP WITH A POOL PROGRAM AND IS PLANNING TO JOIN [employer]. SHE IS APPROPRIATE FOR D/C AT THIS TIME WITH FOLLOW UP WITH DR. GILLESPIE NEEDED. UPON EXAM TODAY: CHAY LE LIGHT TOUCH SENSATION IS INTACT AND SYMMETRICAL. CHAY LE STREGTH GROSSLY 5/5 WITH MMT'ING AND PATIENT DENIES PAIN WITH TESTING. REPORTS BEING ABLE TO GO UP AND DOWN STEPS - STEP OVER STEP - WHILE CARRYING THINGS NOW. Dural Signs: NEGATIVE CHAY LE'S. Lumbar mvmt loss: flex - NIL. ext - MOD. R SG - MIN. L SG - MIN. PATIENT REPORTED A LITTLE TRANSIENT DISCOMFORT RETURNING TO UPRIGHT FROM FLEX IN STANDING. Core strength: FAIR. Goal 1:: DECREASE C/O BACK AND RIGHT LE SX'S. Goal Progress: Goal Met Goal 2:: IMPROVE LIFTING, WALKING, SITTING, STANDING, SLEEP, SOCIAL LIFE, TRAVEL, WORK AND HOMEMAKING FUNCTION. Goal Progress: Goal Met Goal 3:: INSTRUCT IN PROPHYLAXIS Goal Progress: Goal Met Plan: D/C TO INDEP POOL PROGRAM AND HEP. PATIENT AGREEABLE. If there are questions or concerns regarding this patient's physical therapy, please feel free to call me at [phone]. Thank you for the referral of this patient. Sincerely, Mariah Alfonso PT, Cert MDT
== END 2020-01-24 19:00 | disposition home or self-care (01) ==
LOC: PT 09:00
PROVIDERS: PCP Internal Medicine; Referring Provider Internal Medicine; Visit Provider Internal Medicine
DX: M62.838 Other muscle spasm (principal); M54.5 Low back pain
CPT/HCPCS: 97112; 97113; 97162; 97164

== ENCOUNTER 2020-01-30 10:26 | Observation (INO) | payer OTHER, SELFPAY ==
[2020-01-30 10:28] VITALS: BP 131/70; PULSE 84; RESP 17; TEMP 36.3; O2SAT 100; BMI 21.9
--- NOTE | 2020-01-30 10:51 | ED.DCSUM_ITS ---
History of Present Illness Informant: Patient, Significant Other Onset: Today Context: Sudden Onset Chronic pain exacerbated by: Bending over to clean grill Injury: Bending Timing: Continuous Quality: Sharp Location: Lumbar Current Severity: Severe Maximum Severity: Severe Worsened by: improves with: Movement Relieved by: Nothing Associated Symptoms: - - Denies any associated symptoms Narrative: 49-year-old female with a history of chronic back pain presents to the emergency department with low back pain. It started suddenly this morning when she bent over to clean her grill. The pain is localized to her lumbar back. It does not radiate down her legs. She denies trauma. She denies loss of bowel or bladder function. She denies weakness or paresthesias. She is not lightheaded or dizzy. No nausea or vomiting. No abdominal pain. No history of back surgery. She is in physical therapy for her back currently. She denies any other review of systems. Prior similar symptoms: Yes, With Prior Back Pain Recent Illness/Hospitalization: No <Bryce Chaidez - Last Filed: 01/30/20 14:01> <Samara Anand - Last Filed: 01/30/20 16:42> Chief Complaint: Back Past Medical History Prior records reviewed: Yes Past Medical History: - - Chronic back pain and hyperlipidemia Surgical History: no surgical history Lives: With Family Smoking Status: Never smoker Alcohol: None Drugs: None - Family History Maternal Family History: Reports: No pertinent history Paternal Family History: Reports: No pertinent history <Bryce Chaidez - Last Filed: 01/30/20 14:01> <Samara Anand - Last Filed: 01/30/20 16:42> - Allergies and Home Meds Allergies/Adverse Reactions: Allergies Sulfa (Sulfonamide Antibiotics) Allergy (Verified 01/30/20 10:27) Rash Review of Systems All systems negative except as indicated General: Denies: Chills, Fever, Sweats Eyes: Denies: Visual changes - bilaterally, Diplopia ENT: Denies: Rhinorrhea, Sore throat Cardiovascular: Denies: Chest pain, Palpitations Respiratory: Denies: Dyspnea, Cough, Dyspnea on exertion Gastrointestinal: Denies: Abdominal pain, Nausea, Vomiting, Diarrhea, Melena, Hematochezia Genitourinary: Denies: Dysuria, Hematuria, Frequency Musculoskeletal: Reports: Back pain. Denies: Myalgias, Arthralgias, Neck pain, Swelling, Extremity Pain Skin: Denies: Rash, Abscess, Abrasions, Wounds Neurological: Denies: Headache, Weakness, Parasthesia, Numbness <Bryce Chaidez - Last Filed: 01/30/20 14:01> Physical Exam Vital Signs/Narrative: Vital Signs Temp Pulse Resp BP Pulse Ox 01/30/20 10:28 97.4 F L 84 17 131/70 H 100 Inital Vital Signs reviewed: Yes General: Well nourished, Well developed Head: Normocephalic, Atraumatic Eyes: Perrl, EOMI ENT: Moist mucous membranes, No rhinorrhea Neck: Supple, Nontender Cardiovascular: Regular rate, Regular rhythm, No murmurs Respiratory: No distress, CTA bilaterally, Chest nontender Abdomen: Soft, Nontender, Nondistended, Normal bowel sounds Back: Normal Inspection, Paraspinal Tenderness, Negative SLR - Right, Negative SLR - Left. Negative for: Spinal tenderness Extremeties: Nontender, No edema Skin: Normal color, No rash Neuro: Alert, Oriented, Normal Strength, Normal Sensation, Normal DTR, Normal Gait, Normal Reflexes Psychological: Normal affect, Normal Mood <Bryce Chaidez - Last Filed: 01/30/20 14:01> Vital Signs/Narrative: Vital Signs Pulse Resp BP Pulse Ox 01/30/20 15:27 78 17 119/62 98 <Samara Anand - Last Filed: 01/30/20 16:42> Diagnostic/Tx/Re-eval - Medical Decision Making Reviewed patient's visit from earlier this year she had an MRI that showed degenerative disc disease but no other. She does not have any signs or symptoms of cauda equina syndrome at this time or other signs or symptoms that would necessitate an acute MRI today. The patient was given morphine Toradol and Valium. She is able to transfer from the bed to the bedside commode. She will be discharged home we will prescribe Percocet. She has Flexeril at home. She was advised to follow-up with her doctor. She will be given return precautions. All questions answered <Bryce Chaidez - Last Filed: 01/30/20 14:01> - Medical Decision Making I have personally performed a [id number] assessment of the patient and have reviewed the PA note. Patient presents with back pain after bending over to clean her grill this morning. She denies radiation of her pain. Denies numbness or weakness. Denies bowel or bladder incontinence. Vitals are stable. She has bilateral paraspinal lumbar muscle tenderness. Normal strength and sensation. Patient was given multiple doses of medications. She continues to state that she is unable to function at home. Discussed with hospitalist for observation. <Samara Anand - Last Filed: 01/30/20 16:42> ED Disposition <Bryce Chaidez - Last Filed: 01/30/20 14:01> <Smaara Anand - Last Filed: 01/30/20 16:42> - Plan for ED Patient: Disposition: Acute Care Hospital [facility] Diagnosis: Acute low back pain
[2020-01-30] MEDS: Ondansetron ODT 4 MG Tablet PO (11:12)
[2020-01-30] MEDS: morphine 8 MG/ML Syringe IM (11:14)
[2020-01-30] MEDS: Ketorolac 60 MG/2 ML Vial IM (11:14)
[2020-01-30 11:18] VITALS: BP 119/73
[2020-01-30] MEDS: diazePAM 5 MG Tablet PO ×3 (12:41→21:14)
[2020-01-30] MEDS: oxyCODONE 5 MG Tablet PO (14:38)
[2020-01-30 15:27] VITALS: BP 119/62; PULSE 78; RESP 17; O2SAT 98
[2020-01-30 15:48] VITALS: BP 119/62; PULSE 78; RESP 17; TEMP 36.8; O2SAT 98
[2020-01-30 15:51] VITALS: BMI 21.4; BMI 21.5
--- NOTE | 2020-01-30 15:57 | PCM.HP.STD ---
Problem List (1) Acute low back pain Status: Acute (2) Climacteric Status: Chronic Comment: switched from estratest to estrogen patch, titrate to symptom control History of Present Illness Date of Admission: 01/30/20 Chief Complaint: Back pain. The patient is a 49 year old F who presents emergency room due to back pain. Patient states she was bending over to clean her grill when she developed sudden back pain. Patient reports pain across her lower back. Denies radiation down her legs. She states pain is so severe that she is unable to ambulate. Patient states she has had similar recurrent episodes since the age of 18. She denies loss of bowel or bladder function. MRI May 2019 demonstrated degenerative disc disease at L3-L4 and L4-L5. Mild spinal canal stenosis at L3-L4. She has a past medical history of hyperlipidemia. 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 Endometriosis N80.9 Raynaud's disease I73.00 Allergies Sulfa (Sulfonamide Antibiotics) Allergy (Verified 01/30/20 10:27) Rash Home Medications: Ambulatory Orders Medication Instructions Recorded multivitamin 1 tab PO QDAY 10/01/17 rosuvastatin 10 mg tablet 10 mg PO DAILY 11/10/18 estradiol 0.0375 mg/24 hr See Rx Instructions .ROUTE 05/31/19 semiweekly transdermal patch .COMPLEX #24 patch Cetirizine HCl [Zyrtec] 10 mg PO DAILY 06/16/19 Cholecalciferol (VIT D3) [Vitamin 1,000 unit PO DAILY 06/16/19 D3] Ubidecarenone [Co Q-10] 200 mg PO DAILY 06/16/19 cycloBENZAPRine HCl [Flexeril] 10 mg PO TID PRN PRN #30 tab 06/17/19 Icosapent Ethyl [Vascepa] 2 cap PO BID 01/30/20 Oxycodone HCl/Acetaminophen 1 tab PO Q6H PRN PRN 3 Days #12 tab 01/30/20 [Percocet 5/325] Surgical History: Surgical History (Last Reviewed 05/31/19 @ 13:35 by Marion Morales) Status post total abdominal hysterectomy Z90.710 zhane bso Surgical History: no surgical history Psychiatric History: No pertinent psych hx [employer]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 Paternal History Items: - - Denies known paternal medical history including cardiac history. Review of Systems Constitutional: Denies: Chills, Fever, Weight Change HEENT: Denies: Head Aches, Sinus Congestion, Sinus Drainage Cardiovascular: Denies: Chest Pain, Palpitations Respiratory: Denies: Cough, Shortness of breath at rest, Sputum production Gastrointestinal: Denies: Abdominal Pain, Nausea, Vomiting Genitourinary: Denies: Dysuria Musculoskeletal: Reports: Back Pain Skin: Denies: Rash, Wounds Neurological: Denies: Numbness, Tingling, Focal weakness Psychiatric: Denies: Anxiety, Depression, Homicidal Ideations, Suicidal Ideations Hematologic/ Lymphatic: Denies: Easy Bruising, Easy Bleeding VTE Information - Inpt Only VTE Present on Admission: No VTE Mechan Device Prophylaxis: None VTE Pharm Prophylaxis ordered?: No Reason prophylaxis not ordered:: Treatment Not Indicated Patient Problems: Active and Suspected Problems (Last Reviewed 05/31/19 @ 13:35 by Marion Morales) Acute low back pain (Acute) - Physical Exam Vitals/I&O's: Vital Signs Temp Pulse Resp BP Pulse Ox 98.2 F 78 17 119/62 98 01/30/20 15:48 01/30/20 15:48 01/30/20 15:48 01/30/20 15:48 01/30/20 15:48 Oxygen Delivery Method Room Air Weight: 139 lb 15.896 oz Body Mass Index (BMI) 21.9 General: Alert, Oriented x3, Cooperative HEENT: Atraumatic, PERRLA, EOMI, Normocephalic Neck: Supple, No JVD, Negative Carotid Bruits Lungs: Clear to auscultation, Normal air movement Cardiovascular: Regular rate, No murmurs Abdomen: Bowel Sounds Present, Soft, Non Tender Extremities: No clubbing, No cyanosis, No edema, Capillary Refill Less than 3 Seconds Skin: No rashes, No breakdown Musculoskeletal: Tenderness - Lumbar back, increased pain with straight leg raise Neurological: Cranial nerves II-XII grossly intact, Neuro grossly intact Psych/Mental Status: Flat Affect Assessment/Plan All Active Problems (Last Reviewed 05/31/19 @ 13:35 by Marion Morales) Acute low back pain (Acute) 1. Acute musculoskeletal back pain, chronic degenerative disc disease- MRI May 2019 demonstrated degenerative disc disease at L3-L4 and L4-L5. Mild spinal canal stenosis at L3-L4. PT/OT. PRN pain regimen. Scheduled Valium. IV Decadron. 2. Hyperlipidemia-on vascepa and statin. DVT prophylaxis-not indicated, low risk This patient was seen by Gisel Jama NP-C under the supervision of Dr. Suarez.
[2020-01-30 16:00] VITALS: BP 136/86; PULSE 63; RESP 18; TEMP 36.7; O2SAT 97
[2020-01-30] MEDS: oxyCODONE 5 MG Tablet 10 MG PO ×2 (16:18→21:14)
[2020-01-30] MEDS: dexAMETHasone 4 MG/ML Vial IV ×2 (16:20→23:06)
[2020-01-30 21:24] VITALS: BP 120/50; PULSE 84; RESP 16; TEMP 36.6; O2SAT 97
[2020-01-30] MEDS: 0.9% Saline Lock 10 ML Syringe IV (23:06)
[2020-01-31] MEDS: oxyCODONE 5 MG Tablet 10 MG PO ×4 (02:23→16:18)
[2020-01-31] MEDS: 0.9% Saline Lock 10 ML Syringe IV ×7 (02:26→23:09)
[2020-01-31] MEDS: Ondansetron 4 MG/2 ML Vial IV ×3 (02:26→18:22)
[2020-01-31 02:34] VITALS: BP 119/69; PULSE 79; RESP 16; TEMP 36.6; O2SAT 97
[2020-01-31] MEDS: dexAMETHasone 4 MG/ML Vial IV ×3 (06:04→17:46)
[2020-01-31] MEDS: diazePAM 5 MG Tablet PO ×2 (06:07→14:03)
[2020-01-31 08:25] VITALS: BP 122/62; PULSE 84; RESP 16; TEMP 36.7; O2SAT 97
[2020-01-31] MEDS: Acetaminophen 500 MG Tablet 1000 MG PO ×2 (11:24→12:45)
--- NOTE | 2020-01-31 12:30 | PCM.PROGNOTE ---
<Gisel Jama FELLER HAND - Last Filed: 01/31/20 12:34> Patient Problems: Active and Suspected Problems (Last Reviewed 05/31/19 @ 13:35 by Marion Morales) Acute low back pain (Acute) Subjective: Patient seen and examined. Ambulated minimally with therapy due to intractable back pain. Unable to sit in chair due to pain. Patient tearful and states she is not ready to go home yet. Denies pain radiation down legs. - Physical Exam Vitals/I&O's: Vital Signs Temp Pulse Resp BP Pulse Ox 98.1 F 84 16 122/62 H 97 01/31/20 08:25 01/31/20 08:25 01/31/20 08:25 01/31/20 08:25 01/31/20 08:25 Oxygen Delivery Method Room Air Weight: 137 lb 5.568 oz Body Mass Index (BMI) 21.4 Intake and Output for Last 24 Hours 01/29/20 01/30/20 01/31/20 23:59 23:59 23:59 Intake Total 240 / 240 Output Total 400 / 400 350 / 350 Balance -400 / -400 -110 / -110 General: Alert, Oriented x3, Cooperative HEENT: Atraumatic, PERRLA, EOMI, Normocephalic Neck: Supple, No JVD, Negative Carotid Bruits Lungs: Clear to auscultation, Normal air movement Cardiovascular: Regular rate, No murmurs Abdomen: Bowel Sounds Present, Soft, Non Tender, Non-Distended Extremities: No clubbing, No cyanosis, No edema, Capillary Refill Less than 3 Seconds Skin: No rashes, No breakdown Musculoskeletal: No Tenderness to Palpation of Joints or Extremities Neurological: Cranial nerves II-XII grossly intact, Neuro grossly intact Psych/Mental Status: Flat Affect Current Medications Acetaminophen (Tylenol) 1,000 mg PO Q8H PRN PRN PRN Reason: Pain 1-10 or Fever Last Admin: 01/31/20 11:24 Dose: 500 mg Documented by: Dexamethasone Sodium Phosphate (Decadron) 4 mg IV Q6 [facility] Last Admin: 01/31/20 12:10 Dose: 4 mg Documented by: Diazepam (Valium) 5 mg PO TID [facility] Last Admin: 01/31/20 06:07 Dose: 5 mg Documented by: Morphine Sulfate () 4 mg IV Q3H PRN PRN PRN Reason: Pain Score 6-10 Ondansetron HCl (Zofran) 4 mg IV Q8H PRN PRN PRN Reason: NAUSEA/VOMITING Last Admin: 01/31/20 12:16 Dose: 4 mg Documented by: Oxycodone HCl (Oxyir) 10 mg PO Q4H PRN PRN PRN Reason: Pain Score 4-5 Last Admin: 01/31/20 12:10 Dose: 10 mg Documented by: Sodium Chloride () 10 - 40 ml IV UD PRN PRN Reason: SALINE FLUSH Last Admin: 01/31/20 12:16 Dose: 10 ml Documented by: Medical Necessity - Tobacco Use Smoking Status: Never smoker Assessment/Plan All Active Problems (Last Reviewed 05/31/19 @ 13:35 by Marion Morales) Acute low back pain (Acute) 1. Acute musculoskeletal back pain, chronic degenerative disc disease- MRI May 2019 demonstrated degenerative disc disease at L3-L4 and L4-L5. Mild spinal canal stenosis at L3-L4. PT/OT. PRN pain regimen. Scheduled Valium. IV Decadron. Will refer to Dr. Lama, spine surgeon for ongoing outpatient evaluation at discharge. 2. Hyperlipidemia-on vascepa and statin. DVT prophylaxis-not indicated, low risk This patient was seen by CRISTY Carrero under the supervision of Dr. Davidson. <Yeimi Davidson - Last Filed: 01/31/20 16:32> Subjective: Still with LBP. Abdalla placed 2/2 pt pain. Min ambulation with therapy 2/2 pain. Pain is all centrally located. Denies changes in her bowel and bladder. No weakness or paraesthesia in LE. Pt states that she just finished with PT for her LP and was doing aquatic therapy. - Physical Exam Vitals/I&O's: Vital Signs Temp Pulse Resp BP Pulse Ox 98.1 F 84 16 122/62 H 97 01/31/20 08:25 01/31/20 08:25 01/31/20 08:25 01/31/20 08:25 01/31/20 08:25 Oxygen Delivery Method Room Air Weight: 62.3 kg Body Mass Index (BMI) 21.4 Intake and Output for Last 24 Hours 01/29/20 01/30/20 01/31/20 23:59 23:59 23:59 Intake Total 240 / 240 Output Total 400 / 400 350 / 350 Balance -400 / -400 -110 / -110 General: Alert, Oriented x3, Cooperative, Well developed, Well nourished, - - middle aged WF lying in bed, at bedside HEENT: Atraumatic, PERRLA, EOMI, Normocephalic Neck: Supple, Trachea Midline Lungs: Clear to auscultation, Normal air movement, No rhonchi, No wheeze, No rales Cardiovascular: Regular rate, Regular Rhythm, Normal S1, Normal S2, No murmurs, No Ectopic Activity, No rub noted, No Gallop Abdomen: Bowel Sounds Present, Soft, Non Tender, Non-Distended Extremities: No clubbing, No cyanosis, No edema, Capillary Refill Less than 3 Seconds, Peripheral Pulses Normal Musculoskeletal: Tenderness - LB centrally Neurological: Cranial nerves II-XII grossly intact, Deep Tendon Reflexes 2+/4 and Symmetrical - 3+ B LE and UE, Neuro grossly intact, - - weakness but related to pain not decrease mm strength Psych/Mental Status: Flat Affect, Depressed - mood Current Medications Acetaminophen (Tylenol) 1,000 mg PO Q8H PRN PRN PRN Reason: Pain 1-10 or Fever Last Admin: 01/31/20 12:45 Dose: 500 mg Documented by: Dexamethasone Sodium Phosphate (Decadron) 4 mg IV Q6 [facility] Last Admin: 01/31/20 12:10 Dose: 4 mg Documented by: Diazepam (Valium) 5 mg PO TID [facility] Last Admin: 01/31/20 14:03 Dose: 5 mg Documented by: Morphine Sulfate () 4 mg IV Q3H PRN PRN PRN Reason: Pain Score 6-10 Ondansetron HCl (Zofran) 4 mg IV Q8H PRN PRN PRN Reason: NAUSEA/VOMITING Last Admin: 01/31/20 12:16 Dose: 4 mg Documented by: Oxycodone HCl (Oxyir) 10 mg PO Q4H PRN PRN PRN Reason: Pain Score 4-5 Last Admin: 01/31/20 12:10 Dose: 10 mg Documented by: Sodium Chloride () 10 - 40 ml IV UD PRN PRN Reason: SALINE FLUSH Last Admin: 01/31/20 12:16 Dose: 10 ml Documented by: Assessment/Plan I agree with the above and the following reflects my own independent history and physical exam ASSESSMENT Intractable LBP HPL DJD Lumbar Spine Vitamin D Deficiency Seasonal Allergies DVT Prophylaxis PLAN -d/c Abdalla -XR of LS show DJD in 2014 -PT -encourage OOB -continue pain meds/steroid/mm relaxants -will need to see Dr. Lama for spinal surgery as outpt as this has been a consistent issue -if not better tomorrow will consult pain mgt -MRI May 2019 demonstrated degenerative disc disease at L3-L4 and L4-L5. Mild spinal canal stenosis at L3-L4 -start lovenox as pt is not moving much
[2020-01-31 15:00] VITALS: BP 119/65; PULSE 77; RESP 16; TEMP 36.8; O2SAT 97
--- NOTE | 2020-01-31 15:12 | CHAPLAIN ---
Type of Pastoral Visit _x__ Initial Visit ___ Follow-up Visit ___ On-call Visit ___ General Patient Visit ___ Spiritual Assessment ___ Family Conference ___ Bereavement ___ Rapid Response ___ Code Blue ___ Other (describe below) Pastoral Care Referral From _x__ Patient ___ Family ___ Nurse ___ Physician ___ Draw In Hand ___ Sanding Supervisor ___ Other (describe below) Sacrament/Intervention _x__ Active listening ___ Anointing ___ Jehovah'S Witness ___ Bereavement ___ Communion ___ Mari exploration ___ ___ Life review ___ Prayer ___ Reconciliation ___ Sacrament of Sick _x__ Supportive presence ___ Wedding ___ Other (describe below) Pastoral Comments
[2020-01-31] MEDS: Ketorolac 10 MG Tablet PO (18:22)
[2020-01-31 21:18] VITALS: BP 124/69; PULSE 81; RESP 16; TEMP 36.8; O2SAT 97
[2020-01-31] MEDS: proCHLORPERazine 10 MG/2 ML Vial 5 MG IV (23:09)
[2020-02-01] MEDS: dexAMETHasone 4 MG/ML Vial IV ×2 (00:41→06:28)
[2020-02-01 03:15] VITALS: BP 112/60; PULSE 75; RESP 16; TEMP 36.6; O2SAT 97
[2020-02-01] MEDS: diazePAM 5 MG Tablet PO (06:27)
[2020-02-01] MEDS: 0.9% Saline Lock 10 ML Syringe IV ×2 (06:28→09:35)
[2020-02-01 08:47] VITALS: BP 116/60; PULSE 91; RESP 16; TEMP 36.5; O2SAT 98
[2020-02-01] MEDS: Acetaminophen 500 MG Tablet 1000 MG PO (09:33)
[2020-02-01] MEDS: proCHLORPERazine 10 MG/2 ML Vial 5 MG IV (09:35)
--- NOTE | 2020-02-01 09:35 | DCINST_ITS ---
- Discharge Diagnoses Current Active Problems: Current Active and Chronic Problems (Last Reviewed 05/31/19 @ 13:35 by Marion Morales) Acute low back pain (Acute) You will use the following diet at home:: No restrictions Discharge Activity: Return to Normal Activity Call your doctor if you observe: Shortness of breath, Dizziness, Fainting spells, Chest pain Instructions: ED Back Care Tips Allergies/Adverse Reactions: Allergies Sulfa (Sulfonamide Antibiotics) Allergy (Verified 01/30/20 10:27) Rash Medications to take at Discharge multivitamin 1 tab PO QDAY 10/01/17 rosuvastatin 10 mg tablet 10 mg PO DAILY 11/10/18 estradiol 0.0375 mg/24 hr semiweekly transdermal patch See Rx Instructions .ROUTE .COMPLEX #24 patch 05/31/19 Cetirizine HCl [Zyrtec] 10 mg PO DAILY 06/16/19 Cholecalciferol (VIT D3) [Vitamin D3] 1,000 unit PO DAILY 06/16/19 Ubidecarenone [Co Q-10] 200 mg PO DAILY 06/16/19 cycloBENZAPRine HCl [Flexeril] 10 mg PO TID PRN PRN #30 tab 06/17/19 Icosapent Ethyl [Vascepa] 2 cap PO BID 01/30/20 Oxycodone HCl/Acetaminophen [Percocet 5/325] 1 tab PO Q6H PRN PRN 3 Days #12 tab 01/30/20 Ondansetron HCl [Zofran] 4 mg PO Q8H PRN #20 tab 02/01/20 Prednisone 40 mg PO DAILY #10 tab 02/01/20 The following prescriptions were given: Oxycodone HCl/Acetaminophen [Percocet 5/325] 1 tab PO Q6H PRN PRN 3 Days #12 tab PRN Reason: Pain Transmission Status: Received by [id number] Prednisone 40 mg PO DAILY #10 tab Transmission Status: Pending to [id number] Ondansetron HCl [Zofran] 4 mg PO Q8H PRN #20 tab PRN Reason: Nausea Transmission Status: Pending to [id number] Primary Care Physician: Elizabeth Lantigua DO [Primary Care Provider] - Please follow up with your Primary Care Physician in: 1 Week Test Results: Test results from this visit will be discussed in further detail at your follow- up appointment, if applicable. Please Follow Up With: Kunal Lama DO When: 2 Weeks Proposed Discharge Date: 02/01/20
[2020-02-01] MEDS: Enoxaparin 40 MG/0.4 ML Syringe SC (09:37)
--- NOTE | 2020-02-01 09:37 | PCM.DC.SUM ---
<Gisel Jama NP - Last Filed: 02/01/20 09:41> Discharge Date and Diagnosis - Problem List Patient Problems: Active and Suspected Problems (Last Reviewed 05/31/19 @ 13:35 by Marion Morales) Acute low back pain (Acute) Date of Admission: 01/30/20 Date of Discharge: 02/01/20 - Primary Discharge Diagnosis Acute Problems: Active Problems (Last Reviewed 05/31/19 @ 13:35 by Marion Morales) 1. Acute musculoskeletal back pain, chronic degenerative disc disease 2. Hyperlipidemia - Secondary Discharge Diagnosis Chronic Problems: Chronic Problems (Last Reviewed 05/31/19 @ 13:35 by Marion Morales) Climacteric (Chronic) switched from estratest to estrogen patch, titrate to symptom control Hospital Course and Treatment Operations: None Procedures: None Summary of Care Provided: The patient is a 49 year old F admitted 01/30/2020 due to back pain. 1. Acute musculoskeletal back pain, chronic degenerative disc disease- MRI May 2019 demonstrated degenerative disc disease at L3-L4 and L4-L5. Mild spinal canal stenosis at L3-L4. Will refer to Dr. Lama, spine surgeon for ongoing outpatient evaluation at discharge. Prednisone 40 mg daily for 5 days at discharge. Continue home as needed Flexeril regimen. Rx from ER given for as needed Percocet. Outpatient PT order for DC. Follow-up with PCP in 1 week. 2. Hyperlipidemia-on vascepa and statin. General: Alert, Oriented x3, Cooperative HEENT: Atraumatic, PERRLA, EOMI, Normocephalic Neck: Supple, No JVD, Negative Carotid Bruits Lungs: Clear to auscultation, Normal air movement Cardiovascular: Regular rate, No murmurs Abdomen: Bowel Sounds Present, Soft, Non Tender, Non-Distended Extremities: No clubbing, No cyanosis, No edema, Capillary Refill Less than 3 Seconds Skin: No rashes, No breakdown Musculoskeletal: No Tenderness to Palpation of Joints or Extremities Neurological: Cranial nerves II-XII grossly intact, Neuro grossly intact Psych/Mental Status: Flat Affect Patient seen and examined prior to discharge. Physical assessment as noted above. Patient is stable for discharge with follow up recommendations as noted above. This patient was seen by Gisel Jama NP-C under the supervision of Dr. Davidson. Patient Problems: Active and Suspected Problems (Last Reviewed 05/31/19 @ 13:35 by Marion Morales) Acute low back pain (Acute) - Physical Exam Vitals/I&O's: Vital Signs Temp Pulse Resp BP Pulse Ox 97.7 F L 91 16 116/60 98 02/01/20 08:47 02/01/20 08:47 02/01/20 08:47 02/01/20 08:47 02/01/20 08:47 Oxygen Delivery Method Room Air Weight: 137 lb 5.568 oz Body Mass Index (BMI) 21.4 Intake and Output for Last 24 Hours 01/30/20 01/31/20 02/01/20 23:59 23:59 23:59 Intake Total 640 / 640 100 / 100 Output Total 400 / 400 980 / 980 Balance -400 / -400 -340 / -340 100 / 100 Current Medications Acetaminophen (Tylenol) 1,000 mg PO Q8H PRN PRN PRN Reason: Pain 1-10 or Fever Last Admin: 01/31/20 12:45 Dose: 500 mg Documented by: Dexamethasone Sodium Phosphate (Decadron) 4 mg IV Q6 [facility] Last Admin: 02/01/20 06:28 Dose: 4 mg Documented by: Diazepam (Valium) 5 mg PO TID [facility] Last Admin: 02/01/20 06:27 Dose: 5 mg Documented by: Enoxaparin Sodium (Lovenox) 40 mg SC DAILY [facility] Ketorolac Tromethamine (Toradol) 10 mg PO Q8H PRN PRN PRN Reason: Pain Score 1-10 Stop: 02/04/20 18:02 Last Admin: 01/31/20 18:22 Dose: 10 mg Documented by: Morphine Sulfate () 4 mg IV Q3H PRN PRN PRN Reason: Pain Score 6-10 Ondansetron HCl (Zofran) 4 mg IV Q6H PRN PRN PRN Reason: NAUSEA/VOMITING Last Admin: 01/31/20 18:22 Dose: 4 mg Documented by: Oxycodone HCl (Oxyir) 10 mg PO Q4H PRN PRN PRN Reason: Pain Score 4-5 Last Admin: 01/31/20 16:18 Dose: 10 mg Documented by: Prochlorperazine Edisylate (Compazine Iv) 5 mg IV Q6H PRN PRN PRN Reason: NAUSEA/VOMITING Last Admin: 01/31/20 23:09 Dose: 5 mg Documented by: Sodium Chloride () 10 - 40 ml IV UD PRN PRN Reason: SALINE FLUSH Last Admin: 02/01/20 06:28 Dose: 10 ml Documented by: Discharge Diet: No Restrictions Discharge Activity: Return to Normal Activity Call your doctor if you observe: Shortness of breath, Dizziness, Fainting spells, Chest pain Home Medications: Medications to take at Discharge multivitamin 1 tab PO QDAY 10/01/17 rosuvastatin 10 mg tablet 10 mg PO DAILY 11/10/18 estradiol 0.0375 mg/24 hr semiweekly transdermal patch See Rx Instructions .ROUTE .COMPLEX #24 patch 05/31/19 Cetirizine HCl [Zyrtec] 10 mg PO DAILY 06/16/19 Cholecalciferol (VIT D3) [Vitamin D3] 1,000 unit PO DAILY 06/16/19 Ubidecarenone [Co Q-10] 200 mg PO DAILY 06/16/19 cycloBENZAPRine HCl [Flexeril] 10 mg PO TID PRN PRN #30 tab 06/17/19 Icosapent Ethyl [Vascepa] 2 cap PO BID 01/30/20 Oxycodone HCl/Acetaminophen [Percocet 5/325] 1 tab PO Q6H PRN PRN 3 Days #12 tab 01/30/20 Ondansetron HCl [Zofran] 4 mg PO Q8H PRN #20 tab 02/01/20 Prednisone 40 mg PO DAILY #10 tab 02/01/20 Following Prescriptions Were Given to Patient: Oxycodone HCl/Acetaminophen [Percocet 5/325] 1 tab PO Q6H PRN PRN 3 Days #12 tab PRN Reason: Pain Transmission Status: Received by [id number] Prednisone 40 mg PO DAILY #10 tab Transmission Status: Received by [id number] Ondansetron HCl [Zofran] 4 mg PO Q8H PRN #20 tab PRN Reason: Nausea Transmission Status: Received by [id number] Primary Care Physician: Elizabeth Lantigua DO [Primary Care Provider] - Please follow up with your Primary Care Physician in: 1 Week Please Follow Up With: Kunal Lama DO When: 2 Weeks Patient Instructions: ED Back Care Tips Disposition: Home Minutes spent on discharge:: 35 Patient Condition:: Stable Medical Necessity - Tobacco Use Smoking Status: Never smoker Meaningful Use Info Meaningful Use Diagnoses (Choose all that apply): None applicable <Yeimi Davidson - Last Filed: 02/01/20 14:28> Discharge Date and Diagnosis - Primary Discharge Diagnosis Acute Problems: Active Problems (Last Reviewed 05/31/19 @ 13:35 by Marion Morales) Acute low back pain (Acute) - Secondary Discharge Diagnosis Chronic Problems: Chronic Problems (Last Reviewed 05/31/19 @ 13:35 by Marion Morales) 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 Mild spinal canal stenosis at L3-L4 -sx better today but not resolved--> pt has had issues with this since she was 18 yo, remains WITHOUT any neurological signs -PT referral given -continue pain meds/steroid/mm relaxants at d/c with scripts for steroids and mm relaxant (had script for percocet from ED) -Mitzifran given -will need to see Dr. Lama for spinal surgery as outpt as this has been a consistent issue -f/u with PCP Subjective: Pt states that she is feeling better today. Still having pain but remains all in central LB. Wants to get a shower before she leaves. Got up and was able to go to the BR. - Physical Exam Vitals/I&O's: Vital Signs Temp Pulse Resp BP Pulse Ox 97.7 F L 91 16 116/60 98 02/01/20 08:47 02/01/20 08:47 02/01/20 08:47 02/01/20 08:47 02/01/20 08:47 Oxygen Delivery Method Room Air Weight: 62.3 kg Body Mass Index (BMI) 21.4 Intake and Output for Last 24 Hours 01/30/20 01/31/20 02/01/20 23:59 23:59 23:59 Intake Total 640 / 640 100 / 100 Output Total 400 / 400 980 / 980 Balance -400 / -400 -340 / -340 100 / 100 General: Alert, Oriented x3, Cooperative, No apparent distress, Well developed, Well nourished Lungs: Clear to auscultation, Normal air movement, No rhonchi, No wheeze, No rales Cardiovascular: Regular rate, Regular Rhythm, Normal S1, Normal S2, No murmurs, No Ectopic Activity, No rub noted, No Gallop Abdomen: Bowel Sounds Present, Soft, Non Tender, Non-Distended, No Hepato-splenomegaly, No hernias noted Extremities: No clubbing, No cyanosis, No edema, Capillary Refill Less than 3 Seconds, Peripheral Pulses Normal Musculoskeletal: Tenderness - Lumbar paraspinals Neurological: Neuro grossly intact, Muscle tone normal, Sensory exam intact to light touch and pain, Coordination normal Meaningful Use Info Meaningful Use Diagnoses (Choose all that apply): None applicable Inpatient E&M: [id number] [facility]
--- NOTE | 2020-02-01 11:40 | NURSING ---
Issue: Plan for DC home today and per Kris Jama NP- with outpatient PT S/w patient at bedside and agreeable to outpatient PT, states just finished with [facility] and that would be her preference to return. Order faxed to [facility] with confirmation received, original order given to the patient. No further RNCM needs identified at this time. Jeanine Membreno RNCM
== END 2020-02-01 13:00 | disposition home or self-care (01) ==
LOC: ED 14:02 → MS3 16:09
PROVIDERS: Admitting Provider Internal Medicine; Emergency Provider Physician Assistant Medical; PCP Internal Medicine; Visit Provider Internal Medicine
DX: M51.36 Other intervertebral disc degeneration, lumbar region (principal); G89.29 Other chronic pain; E78.5 Hyperlipidemia, unspecified; M48.061 Spinal stenosis, lumbar region without neurogenic claudication; I73.00 Raynaud's syndrome without gangrene; N80.9 Endometriosis, unspecified; Z78.0 Asymptomatic menopausal state; Z79.899 Other long term (current) drug therapy; E55.9 Vitamin D deficiency, unspecified
CPT/HCPCS: 96372; 96374; 96375; 96376; 97162; 97166; 99218; 99282; A4216; G0378; J2405

== ENCOUNTER 2020-07-06 14:30 | Outpatient (RCR) | payer OTHER, SELFPAY ==
[2020-01-30 15:51] VITALS: BMI 21.4
--- NOTE | 2020-04-10 11:02 | HP.PTEVAL_ITS ---
Patient's Visit Information MODESTO SPAIN is a 49 year old F referred to Physical Therapy by CRISTY Carrero with a diagnosis of MUSCULOSKELETAL BACK PAIN. Date of Evaluation: 04/10/20 Physical Therapist: Mariah Alfonso PT, Cert MDT - Visit Plan Frequency: 2-3x /Week Duration: 4-6 Weeks Plan: AQUATIC THERAPY FOR PAIN RELEIF, POSTURE CORRECTION/STRENGTHENING, INSTRUCTION IN APPROPRIATE BODY MECHANICS AND ACTIVITY MODIFICATIONS. DLS STARTING WITH A NEUTRAL SPINE PROGRESSING ROM TOLERATED. CHAY LE ROM, STRETCHING AND STRENGTHENING. HEP INSTRUCTION. 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 Present symptoms: CHAY LOW BACK PAIN, CHAY HIP PAIN, SPASMS UP BADK. L>R LE SHOOTING PAINS TO THE CALF ON THE RIGHT AND TO THE FOOT ON THE LEFT. TAIL BONE PAIN. PATIENT DENIES CHAY LE NUMBNESS AND TINGLING. Present since: MAY 2019 WAS FIRST EPISODE. PATIENT REPORTS ABOUT 95% RECOVERING FORM THAT EPISODE BY DEC 2019 AND THEN IN JAN 2020 SQUATTING TO CLEAN GRILL AND FELT PAIN START IN RIGHT HIP, STOOD UP, SAT BACK DOWN AND THEN COULDN'T GET UP. Pain Scale: WORST 7/10, LEAST 2/10. Currently: 4/10. Commenced as a result of: SQUATTING TO CLEAN GRILL THIS EPISODE. Symptoms at onset: RIGHT HIP. Worse: PROLONGED SITTING, PROLONGED STANDING TO DO THINGS LIKE COOKING, LIFTING LAUNDRY BASKET. Better: LYING DOWN. Disturbed sleep: YES. Previous history/Previous treatment: PATIENT WAS HERE FOR PHYSICAL THERAPY (INCLUDING AQUATIC THERAPY) EARLIER THIS YEAR. SEE PT EVAL FOR FULL HISTORY. PATIENT REPORTS AT LEAST 95% RECOVERY FROM THAT EPISODE OF CARE UNTIL CLEANING THE GRILL IN JAN 2020. LAST EPISODE PATIENT REPORTS SHE ONLY SAW DR. GILLESPIE AND PT. DR. GILLESPIE GAVE HER A PAIN KILLER AND MUSCLE RELAXER AT THAT TIME AND WAS HOSPITALIZED FOR 2 DAYS. Treatment this epi sode: DR. MANN IN FEB, AND TALA FROM DR. PARKER APR 06 2020. PATIENT REPORTS THE INJECTION HASN'T HELPED YET BUT THEY TOLD HER IT COULD TAKE 7 TO 10 DAYS TO WORK. JAN 30 2020 WAS HOSPITALIZED AGAIN FOR TWO DAYS. HAD PREDNISONE IN THE HOSPITAL THIS TIME TOO. PATIENT REPORTS DR. MANN AND THE HOSPITAL DOCTOR BOTH REFERRED HER TO PT. PATIENT REPORTS PT WORKED HERE FOR HER IN THE PAST AND SHE DECIDED TO COME BACK. FOLLOW UP WITH DR. PARKER NEXT WEEK. PATIENT REPORTS DR. MANN ALSO DIAGNOSED HER WITH ARTHRITIS IN HER HIPS AND DID NOT RECOMMEND SURGERY YET. Coughing/sneezing/straining: POSITIVE. Gait: PATIENT REPORTS SHE HAS TO GO SLOW AND SHE DOES OK FOR AWHILE THEN SHE STARTS TO HURT. Difficulty initiating urinatin: YES - CATHERIZATION IN THE HOSPITAL. STILL HAVING SOME DIFFICULTY. Accidents: NO. Unexplained weight loss: NO. Imaging: PATIENT REPORTS SHE HAD MORE [facility]-RAYS AT [facility] RECENTLY OF HER HIPS AND BACK AND SHE REPORTS THEY TOLD HER HER VERTEBREAS WERE SHRINKING AND SHE IS GOING TO REQUEST THEY BE SENT TO US. NO REPEAT MRI YET. PMH: HIGH CHOLESTEROL. DEON DANLOS - CONNECTIVE TISSUE DISORDER DX'D 20 YEARS AGO. - Objective Sitting/Standing Posture: Lordosis: Lateral shift: Relevant shift: Active Correction of posture: Other Observations: Motor deficit: CHAY LE STRENGTH IS GROSSLY 4/5 AND PAIN LIMITED. Sensory deficit: CHAY LE LIGHT TOUCH SENSATION INTACT AND SYMMETRICAL. ROM deficit: CHAY LE'S WFL WITH SOME TIGHTNESS CHAY HS'S THOUGH. Reflexes: 2/3 CHAY LE'S. Dural Signs: POSITIVE CHAY LE'S. Lumbar mvmt loss: flex - MOD. ext - STEFF. R SG - STEFF. L SG - MOD. PATIENT C/O INCREASED LBP WITH LUMBAR ROM TESTING ALL PLANES. Core strength: POOR. Palpation: TENDERNESS WITH LIGHT PALPATION OF THE LOWER LUMBAR REGION AND CHAY HIPS. INCREASED MUSCLE TONE CHAY PARASPINALS. TREATMENT: NEUROMUSCULAR REEDUCATION - RETRAINING OF MVMT AND POSTURE FOR SITTING, LYING AND STANDING ACTIVITIES. - Goals Goal 1:: DECREASE C/O BACK PAIN Goal Time Frame: 4-6 Weeks Goal 2:: IMPROVE PERSONAL CARE, LIFTING, WALKING, SITTING, STANDING, SLEEP, SOCIAL LIFE, TRAVEL AND HOMEMAKING FUNCTION. Goal Time Frame: 4-6 Weeks Goal 3:: INSTRUCT IN PROPHYLAXIS Goal Time Frame: 4-6 Weeks - Anticipated Interventions Patient/Client Instruction: Educate patient on: Condition, Plan of Care, Risk Factors, Benefits of Fitness Program For the Purpose of:: To improve self management Therapeutic Exercise to Include: Strength training, Endurance training, Body mechanics, Postural training, Flexibilty training, Gait and locomotor training, Neuromotor development, In an aquatic setting, Dynamic Lumbar Stabilization For the Purpose of:: To decrease pain, To decrease swelling/inflammation, To increase ROM, To improve muscle performance and motor function, To increase tolerance to activity/condition/position, To improve ability of physical actions for home/community/work/leisure, To improve gait and locomotor functions Thank you for the opportunity to evaluate your patient. For Medicare and Medicare HMO plans, please review the plan of care and approve it. It will need to be FAXED BACK to us at [phone] for Medicare purposes. For Medicare only, by signing this I certify the plan of care. Please let me know if there are questions or concerns regarding this plan of care. Physician Signature: Date:
--- NOTE | 2020-05-16 14:19 | HP.PTREVAL_ITS ---
Gisel Jama, ASIM-Xavier, It has been my pleasure to treat MODESTO SPAIN over the last 9 visits for MUSCULOSKELETAL BACK PAIN. Please see the progress note below for an update on the physical therapy plan of care! Subjective: PATIENT REPORTS SHE CAN DO A FEW THINGS AROUND THE HOUSE NOW. CAN GO TO THE STORE BY HERSELF NOW AND THESE ARE BOTH IMPROVEMENTS. GOING UP THE STAIRS IS BETTER TOO. SLEEPING OK BUT TAKING TYLONOL AT NIGHT TIME. RECEIVED [address] PARKER LAST FRIDAY - SOME BENEFIT BUT DID NOT HELP TAILBONE PAIN. PATIENT REPORTS SHE GOES BACKWARDS FOR A WEEK OR SO AFTER THE INJECTIONS AND THEN SHE STARTS TO FEEL BETTER. STATES SHE IS DISCOURGED THAT SHE STILL CAN'T DO A LOT OF THINGS SHE WANTS TO BE ABLE TO DO. THE POOL DOES HELP ME FEEL BETTER THOUGH. Objective/Function: PATIENT WAS SEEN TODAY FOR RE-ASSESSMENT OF PROGRESS TOWARD THE SET PT GOALS AND THE NEED FOR FURTHER PHYSICAL THERAPY VS READINESS FOR DISCHARGE. PATIENT IS MAKING SLOW PROGRESS TOWARD ALL PT GOALS BUT STILL HAS SIGNIFICANT PAIN AND FUNCTIONAL LIMITATIONS. UPON EXAM TODAY: Motor deficit: CHAY HIPS 4/5, CHAY KNEE EXT 5/5, CHAY KNEE FLEX 5/5, CHAY ANKLE DORSIFLEX 5/5. PATIENT IS ABLE TO TOE WALK AND HEEL WALK. Sensory deficit: CHAY LE LIGHT TOUCH SENSATION INTACT AND SYMMETRICAL. ROM deficit: CHAY LE'S WFL WITH MILD TIGHTNES S CHAY HS'S THOUGH. Reflexes: 2/3 CHAY LE'S. Dural Signs: NEGATIVE CHAY LE'S. Lumbar mvmt loss: flex - MIN. ext - STEFF. R SG - MOD. L SG - MOD. PATIENT C/O INCREASED LBP WITH LUMBAR ROM TESTING ALL PLANES. Core strength: POOR. Palpation: TENDERNESS WITH LIGHT PALPATION OF THE LOWER LUMBAR REGION AND CHAY HIPS. INCREASED MUSCLE TONE CHAY PARASPINALS. Plan Plan: RECOMMENDED FOLLOW UP WITH DR. MANN. PATIENT AGREEABLE. DECREASE AQUATIC THERAPY TO 2 TIMES A WEEK. PATIENT PLANS TO BEGIN INDEP WATER EX INCONJUNCTION WITH PT. PROGRESS AQUATIC THERAPY TOLERATED. Goals Goal 1:: DECREASE C/O BACK PAIN Goal Time Frame: 4-6 Weeks Goal Progress: Progressing Goal 2:: IMPROVE PERSONAL CARE, LIFTING, WALKING, SITTING, STANDING, SLEEP, SOCIAL LIFE, TRAVEL AND HOMEMAKING FUNCTION. Goal Time Frame: 4-6 Weeks Goal Progress: Progressing Goal 3:: INSTRUCT IN PROPHYLAXIS Goal Time Frame: 4-6 Weeks Goal Progress: Progressing Anticipated Interventions Patient/Client Instruction: Educate patient on: Condition, Plan of Care, Risk Factors, Benefits of Fitness Program For the Purpose of:: To improve self management Therapeutic Exercise to Include: Strength training, Endurance training, Body mechanics, Postural training, Flexibilty training, Gait and locomotor training, Neuromotor development, In an aquatic setting, Dynamic Lumbar Stabilization For the Purpose of:: To decrease pain, To decrease swelling/inflammation, To increase ROM, To improve muscle performance and motor function, To increase tolerance to activity/condition/position, To improve ability of physical actions for home/community/work/leisure, To improve gait and locomotor functions Please do not hesitate to contact me at [phone] by phone or if you have questions or concerns regarding this new plan of care! Sincerely, Mariah Alfonso, PT, Cert MDT
--- NOTE | 2020-09-05 14:04 | HP.PT.NRP ---
MODESTO SPAIN was seen in my office for initial evaluation on 04/10/20. The following Plan of Care was established for this patient: Initial Frequency: 2-3x /Week Initial Duration: 4-6 Weeks Patient/Client Instruction: Educate patient on: Condition, Plan of Care, Risk Factors, Benefits of Fitness Program For the Purpose of:: To improve self management Therapeutic Exercise to Include: Strength training, Endurance training, Body mechanics, Postural training, Flexibilty training, Gait and locomotor training, Neuromotor development, In an aquatic setting, Dynamic Lumbar Stabilization For the Purpose of:: To decrease pain, To decrease swelling/inflammation, To increase ROM, To improve muscle performance and motor function, To increase tolerance to activity/condition/position, To improve ability of physical actions for home/community/work/leisure, To improve gait and locomotor functions This patient was last seen in our office 07/06/20. Pertinent comments regarding their Physical therapy will appear below: This patient has not returned to Physical Therapy and is appropriate to return to MD for further follow-up as needed. At this point I will be discontinuing this patient from physical therapy. I would be happy to see this patient again in the future if found appropriate by the physician. Thank you! Mariah Alfonso, PT, Cert MDT
== END 2020-07-06 19:00 | disposition home or self-care (01) ==
LOC: PT 14:30
PROVIDERS: PCP Internal Medicine; Referring Provider Internal Medicine; Visit Provider Internal Medicine
DX: M47.26 Other spondylosis with radiculopathy, lumbar region (principal); M51.36 Other intervertebral disc degeneration, lumbar region
CPT/HCPCS: 97112; 97113; 97162; 97164

== ENCOUNTER 2020-07-07 16:49 | Outpatient (RCR) | payer OTHER, SELFPAY ==
[2020-01-30 15:51] VITALS: BMI 21.4
[2020-07-07] MEDS: COVID-19 VACC, MRNA(PFIZER)/PF 30 MCG/0.3 ML SYRINGE IM (09:56)
[2020-07-28] MEDS: COVID-19 VACC, MRNA(PFIZER)/PF 30 MCG/0.3 ML SYRINGE IM (09:59)
== END 2020-07-07 23:59 ==
LOC: IMMUN 16:49
PROVIDERS: PCP Internal Medicine; Visit Provider Family Medicine
DX: Z23 Encounter for immunization (principal)
CPT/HCPCS: 0001A; 0002A; 91300

== ENCOUNTER → 2020-10-20 13:04 | Outpatient (CLI) | payer OTHER, SELFPAY ==
[2020-01-30 15:51] VITALS: BMI 21.4
--- NOTE | 2020-10-20 13:09 | CT_ITS ---
STUDY: CT ABDOMEN AND PELVIS WITHOUT CONTRAST REASON FOR EXAM: Female, 50 years old. Right lower quadrant pain. RADIATION DOSAGE (If Supplied By Facility): CTDIvol = ( 6.36 ) mGy, DLP = ( 318.82 ) mGycm TECHNIQUE: Transaxial images were obtained from the dome of the diaphragm to the symphysis pubis without oral contrast, and without intravenous contrast. Sagittal and coronal images were reconstructed. Individualized dose optimization techniques were used for this CT. COMPARISON: Comparison is made with prior examination dated 10/05/2009. FINDINGS: The visualized lung bases are unremarkable. The visualized portions of the heart are within normal limits. 1.2 cm cyst in the lateral segment of the left lobe liver. This is unchanged. Normal gallbladder and extrahepatic biliary system. There is a 7.3 mm calcified nodule in the inferior aspect of the spleen. Normal pancreas. Normal bilateral adrenal glands. Normal right kidney. Normal left kidney. There is a small hiatal hernia. Normal small intestine. Normal colon. The appendix is visualized and appears normal. Normal abdominal aorta. Normal inferior vena cava. Normal retroperitoneum. Normal urinary bladder. There is absence of the uterus consistent with a prior hysterectomy. There is a small umbilical hernia containing fat. There are mild degenerative changes of the visualized lumbar spine. CT/Abdomen/Pelvis without Cont IMPRESSION: No acute abnormalities. Electronically Signed: Santiago Vargas MD at 13:50 EDT , Service support ,
== END ==
PROVIDERS: PCP Internal Medicine; Referring Provider Internal Medicine; Visit Provider Internal Medicine
DX: R10.84 Generalized abdominal pain (principal)
CPT/HCPCS: 74176

== ENCOUNTER → 2020-11-28 09:11 | Outpatient (CLI) | payer OTHER, SELFPAY ==
[2020-01-30 15:51] VITALS: BMI 21.4
--- NOTE | 2020-11-28 09:13 | BI_ITS ---
MAMMOGRAPHY - BILATERAL SCREENING REASON FOR EXAM: Female, 50 years old. Routine annual screening examination. PERTINENT HISTORY: Non-contributory. TECHNIQUE: Digital bilateral breast luis felipe (3D mammographic acquisition) in the CC and MLO projections. 2-D mediolateral oblique (MLO) and craniocaudad (CC) views of both breasts were obtained. CAD: Full Field Digital Mammography with Computer Added Detection was performed. COMPARISON: Comparison is made with prior study dated 11/23/2019 and 11/18/2018. FINDINGS: Breast Composition: The breasts are heterogeneously dense, which may obscure small masses. There are no dominant masses or suspicious calcifications. No other significant abnormalities are identified. There has been no significant change since the prior study. BI/SCRN MAMM (CAD)W/LUIS FELIPE BILAT IMPRESSION: Stable bilateral screening mammogram. Yearly follow-up mammogram recommended. (A) ASSESSMENT CATEGORY: BIRADS Category 1: Negative. A letter regarding these results will be sent to the patient by the facility within 30 days. Approximately 10% of breast cancers are not detected by mammography. A normal mammogram should not delay biopsy of a clinically suspicious abnormality. [id number] Electronically Signed: Santiago Vargas MD at 10:54 EDT , Service support ,
--- NOTE | 2020-11-28 09:20 | BD_ITS ---
STUDY: DUAL ENERGY X-RAY ABSORPTIOMETRY / DXA REASON FOR EXAM: Female, 50 years old. Screening. The patient is postmenopausal. TECHNIQUE: Bone Mineral Density (BMD) measurements of lumbar spine and bilateral hips were obtained. COMPARISON: Comparison is made with prior study 11/26/2018. FINDINGS: Lumbar Spine (L1-L4): g/cm2 (0.863) / T-score (-1.7) / Z-score (-0.8) Findings are suggestive of osteopenia with a moderate fracture risk. Left Femur Total: g/cm2 (0.736) / T-score (-1.7) / Z-score (-1.2) Left Femoral Neck: g/cm2 (0.551) / T-score (-2.7) / Z-score (-1.9) Right Femur Total: g/cm2 (0.75) / T-score (-1.5) / Z-score (-1.0) Right Femoral Neck: g/cm2 (0.635) / T-score (-1.9) / Z-score (-1.1) The T-Scores on the most recent prior examination were: Lumbar Spine (L1-L4): There has been worsening of bone density since the previous examination. Left Femur Total: which represents an improvement of 2.5%. Right Femur Total: which represents a worsening of 2.2%. BD/Dexa Bone Density Study IMPRESSION: The patient is considered osteopenic as outlined below according to World Jeff Organization (WHO) criteria with a high fracture risk. There has been worsening of bone density since the previous examination. Reference Information: The T-score is the number of standard deviations above or below the standard which is normal for young adults at their peak bone mineral density. The World Health Organization (WHO) interprets the T-scores as follows: Above -1 Normal bone density Between -1 and -2.5 Osteopenia Equal to / or below -2.5 Osteoporosis As a practical clinical guideline, osteopenia may be graded as follows: Mild -1 through -1.5 Moderate -1.6 through -2.0 Severe -2.1 through -2.4 The Z-score is the number of standard deviations above or below age-matched controls. A Z-score of less than -1.5 would be considered abnormal. References: 1. NIH Osteoporosis and Related Bone Diseases www osteo.org 2. International Society for Clinical Densitometry www iscd.org 3. National Osteoporosis Foundation www nof.org Electronically Signed: Santiago Vargas MD at 10:53 EDT , Service support ,
== END ==
PROVIDERS: PCP Internal Medicine; Referring Provider Obstetrics & Gynecology; Visit Provider Obstetrics & Gynecology
DX: Z12.31 Encounter for screening mammogram for malignant neoplasm of breast (principal); M54.5 Low back pain; Z78.0 Asymptomatic menopausal state; M85.80 Other specified disorders of bone density and structure, unspecified site
CPT/HCPCS: 77063; 77067; 77080

== ENCOUNTER → 2021-02-17 08:43 | Outpatient (CLI) | payer OTHER, SELFPAY ==
--- NOTE | 2021-02-17 08:46 | CT_ITS ---
EXAM: CT ABDOMEN AND PELVIS WITHOUT INTRAVENOUS CONTRAST CLINICAL INDICATION: FLANK PAIN TECHNIQUE: Helically acquired images were obtained of the abdomen and pelvis without intravenous contrast. This CT exam was performed using one or more of the following dose reduction techniques: automated exposure control, adjustment of the mA and/or kV according to patient size, and/or use of iterative reconstruction technique. This report was created using [employer] report generation technology. CONTRAST: 10/20/2020 COMPARISON: None. FINDINGS: LOWER THORAX: Unremarkable. Lung bases are clear. No cardiomegaly. No significant pericardial effusion. ABDOMEN: LIVER: Unremarkable. Homogeneous. GALLBLADDER AND BILE DUCTS: Unremarkable. No calcified gallstones. No gallbladder distention or wall edema. No intra- or extrahepatic biliary ductal dilation. PANCREAS: Unremarkable. No focal cystic mass. SPLEEN: Unremarkable. Normal size without focal cystic or solid mass. ADRENALS: Unremarkable. No nodules. KIDNEYS AND URETERS: Unremarkable. Normal renal size and position. No hydronephrosis. STOMACH AND BOWEL: Unremarkable. No stomach or bowel distention. No focal inflammatory change. PELVIS: APPENDIX: No evidence of acute appendicitis. BLADDER: Unremarkable. REPRODUCTIVE: Unremarkable as visualized. No mass. ABDOMEN and PELVIS: INTRAPERITONEAL SPACE: Unremarkable. No ascites or other fluid collection. No free air. BONES/JOINTS: Degenerative changes at L4-L5. No suspicious lytic or blastic abnormality. SOFT TISSUES: Very small periumbilical fat-containing hernia. Small bilateral fat-containing inguinal hernias. VASCULATURE: Unremarkable. Abdominal aorta is non-dilated. LYMPH NODES: Unremarkable. No enlarged lymph nodes. CT/Abdomen/Pelvis without Cont IMPRESSION: No hydronephrosis or urinary tract calcifications. Electronically Signed: Elroy Conner MD ([place]) at 18:12 EDT , Service support ,
== END ==
PROVIDERS: PCP Internal Medicine; Referring Provider Internal Medicine; Visit Provider Internal Medicine
DX: R10.9 Unspecified abdominal pain (principal)
CPT/HCPCS: 74176

== ENCOUNTER 2021-03-05 11:00 | Outpatient (RCR) | payer OTHER, SELFPAY ==
--- NOTE | 2021-02-13 10:26 | HP.PTEVAL_ITS ---
Patient's Visit Information MODESTO SPAIN is a 50 year old F referred to Physical Therapy by Dr. Elizabeth Gillespie DO with a diagnosis of HIP PAIN AND GREATER TROCH BURSITIS. Date of Evaluation: 02/13/21 Physical Therapist: Mariah Alfonso PT, Cert MDT - Visit Plan Frequency: 2-3x /Week Duration: 4-6 Weeks Plan: AQUATIC THERAPY FOR PAIN RELIEF, POSTURE CORRECTION/STRENGTHENING, INSTRUCTION IN APPROPRIATE BODY MECHANICS AND ACTIVITY MODIFICATIONS. DLS STARTING WITH A NEUTRAL SPINE PROGRESSING ROM TOLERATED. CHAY LE ROM, STRETCHING AND STRENGTHENING. HEP INSTRUCTION. - Subjective Work/Leisure: UNEMPLOYEED. Disability: NO. Present symptoms: LOW BACK PAIN - RIGHT. CHAY HIP PAIN. CHAY PAIN, NUMBNESS AND TINGLING AND WEAKNESS INTO THIGHS AND LEGS AND EVEN BIG TOE ON RIGHT. Present since: MAY 2018. Pain Scale: WORST 6/10, LEAST 1/10. Currently: 05/31. 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 Symptoms at onset: LOW BACK PAIN. Worse: EXTENDING RIGHT LEG WHILE POINTING TOES DOWN PROVOKES RIGHT TOE PAIN. GETTING RIGHT TOE PAIN WITH WALKING SOMETIMES TOO. PROLONGED SITTING. PROLONGED STANDING. I AM GUARDED WITH WHAT I DO SO I DON'T GO BACK TO THE PAIN I HAD BEFORE. Better: HOME STRETCHES. HOME TENS UNIT. WARM BATH. Disturbed sleep: YES. Previous history/Previous treatment: PHYSICAL THERAPY. AQUATIC THERAPY. PRESCRIPTION MEDICATIONS. NO BACK SURGERY. NO HIP SURGERY. NO CHIROPRACTOR. Treatment this episode: DR. PARKER: 2 SETS OF 3 TALA'S. CHAY LOW BACK NERVE ABLASION PROCEEDURES WITH LAST PROCEEDURE BEING ABOUT 2-3 MONTHS AGO. PATIENT REPORTS THE PROCEEDURES HELPED TO AN EXTENT. DECREASED PAIN BUT STILL WEAKNESS AND SHOOTING PAINS IN BACK AND HIPS. FINISHING ANOTHER ROUND OF ORAL STEROIDS TODAY. Coughing/sneezing/straining: POSITIVE. Gait: SOMETIMES I GET A PAIN AND I LIMP. SLOWER AND MORE GUARDED. I AM VERY GUARDED. Difficulty initiating urination: SOMETIMES - DR. GILLESPIE IS AWARE PER PATIENT. Accidents: NO. Unexplained weight loss: NO. Imaging: PER PATIENT REPORT: RECENT CHAY HIP X-RAYS LAST WEEK AND THEY SHOWED SOME OA IN PUBIC BONES. 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 LUMBAR MRI ORDERED BY DR. MANN SHOWING SPINAL STENOSIS, BONE SPUR AND DDD - NO SURGERY RECOMMENDED. PMH: ANXIETY. - Objective Sitting/Standing Posture: FAIR. Lordosis: DECREASED. Lateral shift: NO. Relevant shift: N/A. Active Correction of posture: NE. Other Observations: INDEP GUARDED GAIT AND TRANSFERS. Motor deficit: CHAY LE'S 5/5 WITH MMT'ING. Sensory deficit: CHAY LE LIGHT TOUCH SENSATION INTACT AND SYMMETRICAL. ROM deficit: CHAY LE'S WFL WITH MILD CHAY GASTROC SOLEUS AND HIP FLEXOR TIGHTNESS. Reflexes: 2/3 CHAY LE'S. Dural Signs: NEGATIVE CHAY LE'S. Lumbar mvmt loss: flex - NIL - NE. ext - MOD - PRODUCES CHAY BUTTOCK PAIN. R SG - MOD - NE. L SG - MIN - NE. Core strength: POOR. Palpation: NO ACUTE LUMBAR OR CHAY HIP TENDERNESS. WICHO TESTING CHAY - PROVOKES LBP BUT NOT GROIN PAIN. TREATMENT: NEUROMUSCULAR REEDUCATION - RETRAINING OF MVMT AND POSTURE FOR SITTING, LYING AND STANDING ACTIVITIES. - Balance/Special Test Scores Oswestry Low Back Score: 22 Lower Extremity Functional Score: 38 - Goals Goal 1:: DECREASE C/O LOW BACK AND CHAY LE SX'S. Goal Time Frame: 4-6 Weeks Goal 2:: IMPROVE SITTING, STANDING, WALKING, LIFTING, SLEEP, HOUSEWORK AND REC REATIONAL FUNCTION Goal Time Frame: 4-6 Weeks Goal 3:: INSTRUCT IN PROPHYLAXIS Goal Time Frame: 4-6 Weeks - Anticipated Interventions Patient/Client Instruction: Educate patient on: Condition, Plan of Care, Risk Factors For the Purpose of:: To improve self management Therapeutic Exercise to Include: Strength training, Body mechanics, Postural training, Flexibilty training, Neuromotor development, In an aquatic setting, Dynamic Lumbar Stabilization For the Purpose of:: To decrease pain, To improve muscle performance and motor function, To increase tolerance to activity/condition/position, To improve ab ility of physical actions for home/community/work/leisure Thank you for the opportunity to evaluate your patient. For Medicare and Medicare HMO plans, please review the plan of care and approve it. It will need to be FAXED BACK to us at [phone] for Medicare purposes. For Medicare only, by signing this I certify the plan of care. Please let me know if there are questions or concerns regarding this plan of care. Physician Signature: Date:
--- NOTE | 2021-03-05 11:38 | HP.PTDCSUM ---
It has been my pleasure to treat MODESTO SPAIN referred by Dr. Elizabeth Lantigua DO, with the diagnosis of HIP PAIN AND GREATER TROCH BURSITIS for a total of 9 visit(s). Discharge Date: Please see the following information for a summary of their discharge status. Subjective: PATIENT REPORTS THAT SINCE STARTING THIS EPISODE OF CARE WITH PT SHE IS ABOUT THE SAME. SOMETIMES HAD INCREASED PAIN AFTER PT POOL SESSIONS. STATES SHE DOESN'T FEEL LIKE SHE CAN DO MUCH IN THE POOL NOW SHE COULD DURING HER LAST EPISODE OF CARE WITH PT EARLIER THIS YEAR. NO FOLLOW UP PENDING WITH DR. MANN. PATIENT REPORTS THAT SHE FEELS A HARD BALL AT THE BOTTOM OF HER SPINE AND IT PREVENTS HER FROM DOING THINGS. PATIENT REPORTS SHE IS GOING TO CALL DR. PARKER TO SEE WHAT NEXT STEPS ARE. PATIENT REPORTS SHE HAS HAD SOME LASTING BENEFIT FROM HER LAST PAIN MGMT PROCEEDURES. REPORTS TEMPORARY BENEFIT FROM ORAL STEROIDS. bilat hips Pain Intensity (Out of 10): 0 LB Pain Intensity (Out of 10): 3 % Improvement: 0 Objective/Function: PATIENT WAS SEEN TODAY FOR RE-ASSESSMENT OF PROGRESS TOWARD THE SET PT GOALS AND THE NEED FOR FURTHER PHYSICAL THERAPY VS READINESS FOR DISCHARGE. THERE ARE NO SIGNIFICANT SUBJECTIVE CHANGES BEING REPORTED OR OBJECTIVE CHANGES SEEN TODAY WITH TESTING. RECOMMEND PHYSICIAN RE-ASSESSMENT. UPON EXAM TODAY: INDEP GUARDED GAIT AND TRANSFERS. Motor deficit: CHAY LE'S 5/5 WITH MMT'ING. Sensory deficit: CHAY LE LIGHT TOUCH SENSATION INTACT AND SYMMETRICAL. ROM deficit: CHAY LE'S WFL WITH MILD CHAY GASTROC SOLEUS AND HIP FLEXOR TIGHTNESS. Reflexes: 2/3 CHAY LE'S. Dural Signs: NEGATIVE CHAY LE'S. Lumbar mvmt loss: flex - NIL - NE. ext - MOD - INCREASES LBP. R SG - MIN - NE. L SG - MIN - NE. Core strength: POOR. Palpation: MILD TENDERNESS WITH PALPATION OF THE RIGHT LOWER LUMBAR PARASPINALS TODAY. WICHO TESTING CHAY - NEGATIVE TODAY. Goal 1:: DECREASE C/O LOW BACK AND CHAY LE SX'S. Goal 2:: IMPROVE SITTING, STANDING, WALKING, LIFTING, SLEEP, HOUSEWORK AND RECREATIONAL FUNCTION Goal 3:: INSTRUCT IN PROPHYLAXIS Plan: D/C TO PHYSICIAN FOLLOW UP. If there are questions or concerns regarding this patient's physical therapy, please feel free to call me at [phone]. Thank you for the referral of this patient. Sincerely, Mariah Alfonso, PT, Cert MDT Balance/Gait/Functional tests - Balance/Special Test Scores Oswestry Low Back Score: 20 Lower Extremity Functional Score: 39
== END 2021-03-05 15:28 | disposition home or self-care (01) ==
LOC: PT 11:00
PROVIDERS: PCP Internal Medicine; Referring Provider Internal Medicine; Visit Provider Internal Medicine
DX: M70.60 Trochanteric bursitis, unspecified hip (principal); M25.559 Pain in unspecified hip; Y93.9 Activity, unspecified
CPT/HCPCS: 97112; 97113; 97162; 97164

== ENCOUNTER → 2021-09-18 | Outpatient (CLI) | payer OTHER, SELFPAY ==
--- NOTE | 2021-09-18 09:54 | RAD_ITS ---
STUDY: X-RAY - THORACIC SPINE REASON FOR EXAM: Female, 51 years old. PAIN Technologist Notes mid/upper back pain x 2-3 months TECHNIQUE: XR Spine Thoracic 3 Views COMPARISON: None FINDINGS: Normal kyphosis of the thoracic spine. There is no substantial scoliosis. Normal thoracic vertebrae and endplates. Normal disc space heights. The soft tissue structures are unremarkable. RAD/Thoracic Spine 3 Views IMPRESSION: Normal x-ray examination of the thoracic spine. Electronically Signed: Zeus Melton MD at 17:51 EDT ,
== END | disposition home or self-care (01) ==
LOC: MTRAD 09:53
PROVIDERS: PCP Internal Medicine; Referring Provider Nurse Practitioner Family; Visit Provider Nurse Practitioner Family
DX: M54.6 Pain in thoracic spine (principal)
CPT/HCPCS: 72072

== ENCOUNTER → 2021-11-29 | Outpatient (CLI) | payer OTHER, SELFPAY ==
--- NOTE | 2021-11-29 09:44 | BI_ITS ---
MAMMOGRAPHY - BILATERAL SCREENING REASON FOR EXAM: Female, 51 years old. Routine annual screening examination. PERTINENT HISTORY: Non-contributory. TECHNIQUE: Digital bilateral breast luis felipe (3D mammographic acquisition) in the CC and MLO projections. 2-D mediolateral oblique (MLO) and craniocaudad (CC) views of both breasts were obtained. CAD: Full Field Digital Mammography with Computer Added Detection was performed. COMPARISON: Comparison is made with prior study 11/28/2020 and 11/23/2019. FINDINGS: Breast Composition: The breasts are heterogeneously dense, which may obscure small masses. There are no dominant masses or suspicious calcifications. No other significant abnormalities are identified. There has been no significant change since the prior study. BI/SCRN MAMM (CAD)W/LUIS FELIPE BILAT IMPRESSION: Stable bilateral screening mammogram. Yearly follow-up mammogram recommended. (A) ASSESSMENT CATEGORY: BIRADS Category 1: Negative. A letter regarding these results will be sent to the patient by the facility within 30 days. Approximately 10% of breast cancers are not detected by mammography. A normal mammogram should not delay biopsy of a clinically suspicious abnormality. [id number] Electronically Signed: Santiago Vargas MD at 10:31 EDT ,
== END | disposition home or self-care (01) ==
LOC: OPBI 09:42
PROVIDERS: PCP Internal Medicine; Visit Provider Obstetrics & Gynecology
DX: Z12.31 Encounter for screening mammogram for malignant neoplasm of breast (principal)
CPT/HCPCS: 77063; 77067

== ENCOUNTER 2021-12-19 07:09 | Day surgery (SDC) | payer OTHER, SELFPAY ==
[2021-12-19] VITALS (8 sets, daily range): BP systolic 93–124; BP diastolic 6–78; PULSE 78–96; RESP 16–18; TEMP 36.6–37.7; O2SAT 100; BMI 22.1
[2021-12-19] MEDS: Lactated Ringers 1,000 ML 15 ML IV (07:35)
--- NOTE | 2021-12-19 07:52 | PCM.HP.STD ---
HPI - General General Date of Admission: 12/19/21 Date of Service: 12/19/21 Chief Complaint: Screening colonoscopy HPI Robbie SPAIN, is a 51 F who presents for screening colonoscopy. She has not had a colonoscopy in the past. She has no family history of GI malignancy. She has not chest pain or shortness of breath. She has not no other vomiting reappear she has a past medical history of mild gastric reflux disease and some chronic pain. She does not take any NSAIDs on a daily basis. She does not have any problems with her bowels. All other 16 review of systems are negative except those pertinent positive mentioned HPI. [facility] Medical History (Updated 12/13/21 @ 13:12 by Barb Arreguin) Anxiety Arthritis Back pain Sahara-Danlos disease Endometriosis Gastric reflux High cholesterol History of echocardiogram History of steroid therapy History of stress test Post-menopausal Raynaud's disease Home Medications multivitamin 1 tab PO QDAY supplement 10/01/17 [History Last Taken 12/18/21] coenzyme Q10 200 mg capsule 200 mg PO DAILY cholesterol 06/16/19 [History Last Taken 12/18/21] cyclobenzaprine 10 mg tablet 10 mg PO TID PRN PRN muscle spasm #30 tabs 06/17/19 [Rx Last Taken 12/18/21] icosapent ethyl 1 gram capsule 2 cap PO BID cholesterol 01/30/20 [History Last Taken 12/18/21] calcium citrate 250 mg calcium-vitamin D3 5 mcg (200 unit) tablet (Citracal Regular) 1 tab PO TID 12/29/20 [History Last Taken 12/18/21] estradiol 0.0375 mg/24 hr semiweekly transdermal patch See Rx Instructions .Route .COMPLEX #24 patches 12/29/20 [Rx Last Taken 12/18/21] turmeric 400 mg capsule 400 mg PO DAILY 12/29/20 [History Last Taken 12/18/21] loratadine 10 mg tablet (Claritin) 10 mg PO DAILY 09/12/21 [History Last Taken 12/18/21] acetaminophen 500 mg tablet (Tylenol Extra Strength) 1,000 mg PO Q6H PRN Pain 10/26/21 [History Last Taken 12/18/21] amitriptyline 10 mg tablet 25 mg PO QHS 10/26/21 [History Last Taken 12/18/21] gabapentin 100 mg capsule 300 mg PO TID 10/26/21 [History Last Taken 12/19/21] lorazepam 0.5 mg tablet 0.5 mg PO PRN PRN anxiety 10/26/21 [History Last Taken 12/18/21] famotidine 20 mg tablet 20 mg PO DAILY 12/13/21 [History Last Taken 12/18/21] Allergy/AdvReac Type Severity Reaction Status Date / Time Sulfa (Sulfonamide Allergy Rash Verified 12/19/21 07:34 Antibiotics) Family History (Updated 09/12/21 @ 08:48 by Bisi Leigh) Grandfather Colon cancer Surgical History (Updated 12/13/21 @ 13:12 by Barb Arerguin) Hx of surgical procedure Spinal stenosis Status post total abdominal hysterectomy Social History Smoking Status: Never smoker alcohol intake: never substance use type: does not use caffeine: Yes what type of physical activity do you participate in: none seatbelt use: always do you feel safe at home: Yes additional social history: -Raj- Works at [employer] 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 ROS Review of Systems ROS Unobtainable: other Constitutional Constitutional: Denies fatigue, fever(s), poor appetite, weight gain or weight loss ENT HEENT: Denies mouth lesions Cardiovascular Cardiovascular: Denies abdominal bloating, abdominal edema or abdominal pain Respiratory/Chest Respiratory/Chest: Denies change in mental status, change in phlegm color, chest congestion or chest tightness Gastrointestinal Gastrointestinal: Denies belching, bloating, change in bowel habits, change in stool character, chewing difficulty, coffee ground emesis, constipation, cramping, diarrhea, dyspepsia, dysphagia, early satiety, excessive flatus, fecal incontinence, heartburn, hematemesis, hematochezia, hemorrhoids, loose stools, melena, nausea, odynophagia, rectal bleeding, tenesmus, vomiting or weight changes Genitourinary Genitourinary: Denies abdominal discomfort, burning urination or itching Musculoskeletal Musculoskeletal: Reports as per HPI; Denies muscle weakness or myalgias Integumentary Integumentary: Denies jaundice Neurologic Neurologic: Denies lack of coordination or weakness Psychiatric Psychiatric: Denies confusion, depression, memory loss, mood swings, paranoia or suicidal ideation Endocrine Endocrinology: Denies systems reviewed and no addt'l complaints, except as documented Hematologic/Lymphatic Hematologic/Lymphatic: Denies anemia, easy bleeding, easy bruising or lymphadenopathy Allergic/Immunologic Allergic/Immunologic: Denies systems reviewed and no addt'l complaints, except as documented Vital Signs Vital Signs Vital Signs: 12/19/21 07:37 12/19/21 07:37 Temperature 98.6 F Temperature Source Temporal Pulse Rate 96 Respiratory Rate 18 Respiratory Pattern Normal Blood Pressure 121/6 H Blood Pressure Mean 44 Blood Pressure Source Monitor Blood Pressure Position Semi-Fowlers Blood Pressure Location Left Arm Pulse Ox 100 Oxygen Delivery Method Room Air Weight Weight: 141 lb Body Mass Index (BMI) 22.1 Physical Exam Const alert General Appearance: cooperative Orientation / Consciousness: oriented to person HEENT hearing grossly normal bilaterally Head and Scalp: normal to inspection Face and Sinus: face symmetric Nose: external nose normal Mouth: oral and palatal mucosa normal Eyes conjunctivae normal General Eye: normal appearance of both eyes Neck full ROM General: normal visual inspection Lymph Lymphatic: no lymphadenopathy noted Chest inspection of chest normal and palpation of chest normal Chest: symmetrical chest wall rise Resp normal respiratory effort Effort and Inspection: able to speak in complete sentences Cardio regular rate GI non-distended Percussion: normal to percussion Rectal Exam: deferred Neuro Speech: speech normal Gait (Neuro): normal gait Assessment & Plan Assessment/Plan (1) Encounter for screening for malignant neoplasm of colon: PLAN: She was explained alternatives, risk, benefits including not withstanding bleeding, infection, sepsis, perforation, need for emergent . She have an ASA of 1.
--- NOTE | 2021-12-19 08:41 | OP.COLON_ITS ---
Patient Name: Kallie Andrade Procedure Date: 12/19/2021 8:11 AM Date of : 1970 Age: 51 Procedure: Colonoscopy Indications: Screening for colorectal malignant neoplasm Providers: Kun Lord DO Medicines: Monitored Anesthesia Care Patient Profile: This is a 51 year old female. Refer to note in patient chart for documentation of history and physical. Last Colonoscopy: none. The patient's first colonoscopy is today. Complications: No immediate complications. Procedure: Pre-Anesthesia Assessment: - Prior to the procedure, a History and Physical was performed, and patient medications and allergies were reviewed. The patient is competent. The risks and benefits of the procedure and the sedation options and risks were discussed with the patient. All questions were answered and informed consent was obtained. Patient identification and proposed procedure were verified by the physician in the pre-procedure area. Mental Status Examination: alert and oriented. Airway Examination: normal oropharyngeal airway and neck mobility. Respiratory Examination: clear to auscultation. CV Examination: normal. Prophylactic Antibiotics: The patient does not require prophylactic antibiotics. Prior Anticoagulants: The patient has taken no previous anticoagulant or antiplatelet agents. ASA Grade Assessment: II - A patient with mild systemic disease. After reviewing the risks and benefits, the patient was deemed in satisfactory condition to undergo the procedure. The anesthesia plan was to use moderate sedation / analgesia (conscious sedation). Immediately prior to administration of medications, the patient was re-assessed for adequacy to receive sedatives. The heart rate, respiratory rate, oxygen saturations, blood pressure, adequacy of pulmonary ventilation, and response to care were monitored throughout the procedure. The physical status of the patient was re-assessed after the procedure. After I obtained informed consent, the scope was passed under direct vision. Throughout the procedure, the patient's blood pressure, pulse, and oxygen saturations were monitored continuously. The pediatric colonoscope was introduced through the anus and advanced to the terminal ileum, with identification of the appendiceal orifice and IC valve. The colonoscopy was performed without difficulty. The patient tolerated the procedure well. The quality of the bowel preparation was good. Scope In: 8:25:05 AM Scope Withdrawal Time 0 hours 6 minutes 55 seconds Scope Out: 8:36:49 AM Total Procedure Duration Time 0 hours 11 minutes 44 seconds Findings: The perianal and digital rectal examinations were normal. The colon (entire examined portion) appeared normal. No additional abnormalities were found on retroflexion. Impression: - The entire examined colon is normal. - No specimens collected. Recommendation: - Discharge patient to home. - Resume previous diet. - Continue present medications. - Repeat colonoscopy in 10 years for screening purposes. Procedure Code(s): --- Professional --- G0121, Colorectal cancer screening; colonoscopy on individual not meeting criteria for high risk CPT copyright 2017 [employer]. All rights reserved. The codes documented in this report are preliminary and upon scale tank operator review may be revised to meet current compliance requirements. Kun Lord DO 12/19/2021 8:41:07 AM This report has been signed electronically. Number of Addenda: 1 Note Initiated On: 12/19/2021 8:11 AM Addendum Number: 1 Addendum Date: 01/24/2022 5:59:35 AM MAC was used as sedation for this procedure. Kun Lord DO 01/24/2022 5:59:51 AM This report has been signed electronically.
--- NOTE | 2021-12-19 08:42 | OP.CCLET_ITS ---
01/24/2022 Elizabeth Lantigua [address] [place] [address] Re : Colonoscopy procedure for Kallie Andrade Dear Dr. Lantigua This procedure was performed on Friday, December 19, 2021. My impressions and recommendations are as follows: Impressions : - The entire examined colon is normal. - No specimens collected. Recommendations : - Discharge patient to home. - Resume previous diet. - Continue present medications. - Repeat colonoscopy in 10 years for screening purposes. My findings are described in the full procedure note, which is enclosed. If I can be of further assistance, please feel free to contact me at . Sincerely, Kun Lord DO 12/19/2021 8:41:07 AM This report has been signed electronically.
== END 2021-12-19 09:38 | disposition home or self-care (01) ==
LOC: EN 07:09 → AC 07:10
PROVIDERS: PCP Internal Medicine; Referring Provider Internal Medicine; Visit Provider Internal Medicine Gastroenterology
PROC: 0DJD8ZZ Inspection of Lower Intestinal Tract, Via Natural or Artificial Opening Endoscopic (ICD-10-PCS; CPT 45378; principal; 2021-12-19 08:25)
DX: Z12.11 Encounter for screening for malignant neoplasm of colon (principal); K21.9 Gastro-esophageal reflux disease without esophagitis; F41.9 Anxiety disorder, unspecified; Z79.899 Other long term (current) drug therapy; Z80.0 Family history of malignant neoplasm of digestive organs
CPT/HCPCS: 45378; J7120; J2405

== ENCOUNTER → 2022-01-21 | Outpatient (CLI) | payer OTHER, SELFPAY ==
--- NOTE | 2022-01-21 06:27 | ECHOCS_ITS ---
Reason For Study: Abnormal EKG Procedure This was a 2D Doppler, Color Flow transthoracic echocardiogram. The study was technically difficult. Contrast injection was performed. Exam performed in department. Left Ventricle Normal LV size. Left ventricular systolic function is normal. The estimated ejection fraction is 65 %. Stage 1 diastolic dysfunction. No regional wall motion abnormalities noted. Right Ventricle Normal RV size. Normal systolic function. Atria Normal left atrium. Normal right atrium. Mitral Valve Normal mitral valve. Mild (1+) eccentric mitral valve insufficiency. Tricuspid Valve Normal tricuspid valve. Aortic Valve Trisinus/trileaflet aortic valve. Pulmonic Valve Normal pulmonic valve. Great Vessels Normal aortic root. The pulmonary artery is normal size. Normal inferior vena cava. Pericardium/Pleural No pericardial effusion. Medication 20 gauge I.V. with prn adaptor inserted into right arm. Diluted definity 1ml given slow IV push to enhance endocardial definition. MMode/2D Measurements & Calculations LVIDd: 3.4 cm IVSd: 0.76 cm Ao root diam: 2.6 cm LVIDs: 2.6 cm LVPWd: 0.59 cm LA dimension: 3.3 cm RVDd: 2.3 cm FS: 23.4 % LAV(MOD-bp): 24.5 ml LA A4 area: 9.8 cm2 RA A4 area: 7.3 cm2 LAV(MOD-sp2): 32.5 ml LAV(MOD-sp4): 18.3 ml Time Measurements MV dec time: 0.21 sec Doppler Measurements & Calculations MV E max evan: 58.6 cm/sec Lat Peak E' Evan: 12.4 cm/sec Med Peak E' Evan: 9.9 cm/sec MV A max evan: 65.8 cm/sec E/E' lat: 4.7 E/E' med: 5.9 MV E/A: 0.89 MV V2 max: 75.5 cm/sec MV P1/2t max evan: 66.3 cm/sec Ao V2 max: 111.8 cm/sec MV max P.3 mmHg MV P1/2t: 63.8 msec Ao max P.0 mmHg MV V2 mean: 45.0 cm/sec Ao V2 mean: 72.1 cm/sec MV mean P.93 mmHg MV dec slope: 304.5 cm/sec2 Ao mean P.4 mmHg MV V2 VTI: 14.8 cm MVA(P1/2t): 3.4 cm2 Ao V2 VTI: 20.6 cm LV V1 max: 102.6 cm/sec PA V2 max: 96.7 cm/sec LV V1 max P.2 mmHg LV V1 mean P.5 mmHg LV V1 mean: 74.8 cm/sec LV V1 VTI: 19.7 cm ECHO/Echo Complete W/ Contrast Interpretation Summary Normal LV size. Left ventricular systolic function is normal. The estimated ejection fraction is 65 %. Stage 1 diastolic dysfunction. Contrast injection was performed. Ordering Physician: Elizabeth Lantigua Referring Physician: Elizabeth Lantigua Performed By: Brian Gonzalez RCS
--- NOTE | 2022-01-21 18:40 | STRESSREP ---
Stress Test Report Exercise myocardial perfusion stress test. 51-year-old lady with a history of an abnormal EKG. Stress protocol: Resting EKG demonstrates normal sinus rhythm with a rate of 83 bpm normal intervals are noted resting blood pressure is 138/84 mmHg. The patient exercised according to the regular Ryan protocol for 6 minutes and 30 seconds completing 30 seconds into stage III of the Ryan protocol the maximum heart rate attained was 162 bpm which was 96% of max impacted heart rate the maximum workload was 8.5 metabolic equivalents. At rest there were no ST or T wave changes noted to suggest ischemia and at peak exercise upsloping ST changes were noted with did not meet the criteria for ischemia. No clinical angina was noted. The test was terminated due to leg discomfort. Myocardial perfusion protocol. 11.4 mCi of technetium 99m sestamibi was injected at rest. The patient exercised according to the regular Ryan protocol for total duration of 6-1/2 minutes. At peak exercise 33.8 mCi of technetium 99m sestamibi was injected stress images were obtained stress and rest images were reconstructed in comparing the short axis vertical long and horizontal long axis. Gated images were also obtained. Perfusion SPECT analysis: Review of the stress images demonstrate normal uptake of tracer noted in all areas of the myocardium. The resting images similar demonstrate normal uptake of tracer noted in all areas of the myocardium. No areas of reversibility are noted to suggest ischemia and no previous infarct is noted. Gated SPECT analysis: The gated ejection fraction is 82%. Conclusion: Normal exercise myocardial perfusion stress test at a moderate workload. Preserved ejection fraction.
== END | disposition home or self-care (01) ==
LOC: CVS 06:24
PROVIDERS: PCP Internal Medicine; Referring Provider Internal Medicine; Visit Provider Internal Medicine
DX: R94.31 Abnormal electrocardiogram [ECG] [EKG] (principal)
CPT/HCPCS: 78452; 93017; 93306; A9500; Q9957; A4216; C8929

== ENCOUNTER → 2022-01-22 | Outpatient (CLI) | payer OTHER, SELFPAY | END | disposition home or self-care (01) | LOC: PSN 10:32 | PROVIDERS: PCP Internal Medicine; Referring Provider Internal Medicine; Visit Provider Internal Medicine | DX: R94.31 Abnormal electrocardiogram [ECG] [EKG] (principal) | CPT/HCPCS: 93225; 93226 ==

== ENCOUNTER → 2022-07-12 | Outpatient (CLI) | payer OTHER, SELFPAY ==
[2022-07-12 10:27] LABS: Cholesterol 180 mg/dL (200); High Density Lipoprotein 40 mg/dL; Triglycerides 305 mg/dL; Very Low Density Lipoprotein 61 mg/dL (5-40)
== END | disposition home or self-care (01) ==
LOC: LABSPEC 10:01
PROVIDERS: PCP Internal Medicine; Referring Provider Internal Medicine; Visit Provider Internal Medicine
DX: E78.5 Hyperlipidemia, unspecified (principal)
CPT/HCPCS: 80061

== ENCOUNTER → 2022-08-07 | Outpatient (CLI) | payer OTHER, SELFPAY ==
[2022-08-07 15:37] LABS: Absolute Lymphocyte Count 2.12 X10^3/uL (0.83-4.51); Absolute Neutrophil Count 4.5 X10^3/uL (2.0-7.7); Basophil# 0.04 X10^3/uL; Basophil% 0.6 % (0-1); Eosinophil# 0.03 X10^3/uL; Eosinophils% 0.4 % (0-5); Hematocrit 39.5 % (37-47); Lymphocyte # 2.12 X10^3/ul (0.83-4.51); Lymphocyte % 29.4 % (19-41); Mean Corp Hgb Conc 32.9 g/dL (32-36); Mean Corpuscular Hgb 31.7 pg (27.0-32.0); Mean Corpuscular Volume 96.3 fL (81-99); Mean Platelet Vol. 10.3 fl (6.2-12.0); Monocyte# 0.53 X10^3/uL; Monocyte% 7.4 % (0-10); NRBC Flagged by Analyzer 0 % (0-5); Neutrophil # 4.46 X10^3/uL (2.7-7.7); Neutrophil % 61.9 % (47-70); Platelet Count 351 K/mm3 (150-450); RBC Distribution Width CV 11.8 % (11.6-14.6); RBC Distribution Width SD 41.1 fl (35.1-43.9); White Blood Count 7.2 K/mm3 (4.4-11.0)
[2022-08-07 16:01] LABS: D-Dimer Quantitative (DVT/PE) < 0.27 FEU/ug/m (0.27-0.49)
[2022-08-07 16:02] LABS: Erythrocyte Sedimentation Rate 14 mm/hr (0-30); Platelet Morphology 7.2
[2022-08-07 16:37] LABS: ALB/GLOB Ratio 1.2 RATIO (0.9-2.4); AST(SGOT) 17 U/L (15-37); Alanine Aminotransfer ALT/SGPT 31 U/L (13-56); Albumin, Serum 4.2 g/dL (3.2-5.0); Alkaline Phosphatase 81 U/L (45-117); Anion Gap 5 (5-15); BUN 14 mg/dL (7-18); BUN/Creat Ratio 17.8 RATIO (10-20); CRP 3.24 mg/L (0.0-3.0); Calcium,Total 9.2 mg/dL (8.5-10.1); Chloride 107 mmol/L (98-107); Creatinine, Serum 0.79 mg/dL (0.55-1.02); EST Glomerular Filtration Rate 81 mL/min (>60); Est Glom Filt Rate - Afr Amer 98 mL/min (>60); Globulin 3.4 g/dL (2.2-4.2); Glucose 102 mg/dL (74-106); Protein, Total 7.6 g/dL (6.4-8.2); Sodium Level 138 mmol/L (136-145); Troponin-I HS < 3 pg/mL (3.0-54.0)
== END | disposition home or self-care (01) ==
LOC: MTLAB 13:41
PROVIDERS: PCP Internal Medicine; Referring Provider Nurse Practitioner Family; Visit Provider Nurse Practitioner Family
DX: R07.81 Pleurodynia (principal)
CPT/HCPCS: 36415; 80053; 84484; 85025; 85379; 85652; 86140

== ENCOUNTER → 2022-12-12 | Outpatient (CLI) | payer OTHER, SELFPAY ==
--- NOTE | 2022-12-12 09:54 | BI_ITS ---
MAMMOGRAPHY - BILATERAL SCREENING REASON FOR EXAM: Female, 52 years old. Routine annual screening examination. PERTINENT HISTORY: Non-contributory. TECHNIQUE: Digital bilateral breast luis felipe (3D mammographic acquisition) in the CC and MLO projections. 2-D mediolateral oblique (MLO) and craniocaudad (CC) views of both breasts were obtained. CAD: Full Field Digital Mammography with Computer Added Detection was performed. COMPARISON: Screening mammogram from 11/29/2021, 11/28/2020. FINDINGS: Breast Composition: The breasts are heterogeneously dense, which may obscure small masses. There are no dominant masses or suspicious calcifications. No other significant abnormalities are identified. There has been no significant change since the prior study. BI/SCRN MAMM (CAD)W/LUIS FELIPE BILAT IMPRESSION: Stable bilateral screening mammogram. Yearly follow-up mammogram recommended. (A) ASSESSMENT CATEGORY: BIRADS Category 1: Negative. A letter regarding these results will be sent to the patient by the facility within 30 days. Approximately 10% of breast cancers are not detected by mammography. A normal mammogram should not delay biopsy of a clinically suspicious abnormality. Electronically Signed: Marcelino Platt DO at 13:37 EDT ,
--- NOTE | 2022-12-12 09:58 | BD_ITS ---
STUDY: DUAL ENERGY X-RAY ABSORPTIOMETRY / DXA REASON FOR EXAM: Female, 52 years old. Screening for osteoporosis TECHNIQUE: Bone Mineral Density (BMD) measurements of lumbar spine and bilateral hips were obtained. COMPARISON: Comparison is made with prior study dated November 28, 2020. FINDINGS: Lumbar Spine (L1-L4): g/cm2 (0.792) / T-score (-2.3) / Z-score (-1.4) Findings are suggestive of osteopenia with a high fracture risk. Left Femur Total: g/cm2 (0.709) / T-score (-1.9) / Z-score (-1.3) Left Femoral Neck: g/cm2 (0.510) / T-score (-3.1) / Z-score (-2.1) Right Femur Total: g/cm2 (0.726) / T-score (-1.8) / Z-score (-1.2) Right Femoral Neck: g/cm2 (0.628) / T-score (-2.0) / Z-score (-1.0) The T-Scores on the most recent prior examination were: Lumbar Spine (L1-L4): There has been worsening of bone density since the previous examination. Left Femur Total: which represents a worsening of 3.7%. Right Femur Total: which represents a worsening of 4.2%. BD/Dexa Bone Density Study IMPRESSION: The patient is considered osteoporotic as outlined below according to World Jeff Organization (WHO) criteria with a high fracture risk. There has been worsening of bone density since the previous examination. Reference Information: The T-score is the number of standard deviations above or below the standard which is normal for young adults at their peak bone mineral density. The World Health Organization (WHO) interprets the T-scores as follows: Above -1 Normal bone density Between -1 and -2.5 Osteopenia Equal to / or below -2.5 Osteoporosis As a practical clinical guideline, osteopenia may be graded as follows: Mild -1 through -1.5 Moderate -1.6 through -2.0 Severe -2.1 through -2.4 The Z-score is the number of standard deviations above or below age-matched controls. A Z-score of less than -1.5 would be considered abnormal. References: 1. NIH Osteoporosis and Related Bone Diseases www osteo.org 2. International Society for Clinical Densitometry www iscd.org 3. National Osteoporosis Foundation www nof.org Electronically Signed: Santiago Vargas MD at 15:33 EDT ,
== END | disposition home or self-care (01) ==
LOC: OPBD 09:49
PROVIDERS: PCP Internal Medicine; Referring Provider Obstetrics & Gynecology; Visit Provider Obstetrics & Gynecology
DX: Z12.31 Encounter for screening mammogram for malignant neoplasm of breast (principal); Z13.820 Encounter for screening for osteoporosis
CPT/HCPCS: 77063; 77067; 77080

== ENCOUNTER → 2023-01-10 | Outpatient (CLI) | payer OTHER, SELFPAY ==
[2023-01-10 10:16] LABS: Absolute Neutrophil Count 4.5 X10^3/uL (2.0-7.7); Hematocrit 42.3 % (37-47); Hemoglobin 13.8 g/dL (12.0-15.0); Mean Corp Hgb Conc 32.6 g/dL (32-36); Mean Corpuscular Hgb 31.2 pg (27.0-32.0); Mean Corpuscular Volume 95.5 fL (81-99); Platelet Count 365 K/mm3 (150-450); Red Blood Count 4.43 M/mm3 (4.2-5.4); White Blood Count 6.8 K/mm3 (4.4-11.0)
[2023-01-10 10:32] LABS: PTHIN 46.7 pg/mL (18.4-80.1)
[2023-01-10 10:48] LABS: Vitamin D,25 Hydroxy 56.4 ng/mL
[2023-01-10 11:07] LABS: AST(SGOT) 24 U/L (15-37); Alanine Aminotransfer ALT/SGPT 59 U/L (13-56); Albumin, Serum 4.3 g/dL (3.2-5.0); Alkaline Phosphatase 87 U/L (45-117); Bilirubin, Direct 0.07 mg/dL (0.00-0.30); Calcium,Total 9.1 mg/dL (8.5-10.1); Cholesterol 168 mg/dL (200); Globulin 3.6 g/dL (2.2-4.2); High Density Lipoprotein 61 mg/dL; Magnesium 2.6 mg/dL (1.6-2.6); Phosphorus 2.7 mg/dL (2.5-4.9); Protein, Total 7.9 g/dL (6.4-8.2); Thyroid Stim Hormone (TSH) 1.02 uIU/mL (0.358-3.74); Triglycerides 253 mg/dL; Very Low Density Lipoprotein 51 mg/dL (5-40)
[2023-01-10 11:08] LABS: Absolute Lymphocyte Count 1.81 X10^3/uL (0.83-4.51); Basophil# 0.04 X10^3/uL; Basophil% 0.6 % (0-1); Eosinophil# 0.05 X10^3/uL; Eosinophils% 0.7 % (0-5); Lymphocyte # 1.81 X10^3/ul (0.83-4.51); Lymphocyte % 26.4 % (19-41); Mean Platelet Vol. 10.5 fl (6.2-12.0); Monocyte# 0.41 X10^3/uL; NRBC Flagged by Analyzer 0 % (0-5); Neutrophil # 4.54 X10^3/uL (2.7-7.7); Neutrophil % 66.2 % (47-70); RBC Distribution Width CV 11.4 % (11.6-14.6); RBC Distribution Width SD 39.9 fl (35.1-43.9)
== END | disposition home or self-care (01) ==
LOC: MTLAB 07:14
PROVIDERS: PCP Internal Medicine; Referring Provider Internal Medicine; Visit Provider Internal Medicine
DX: E78.5 Hyperlipidemia, unspecified (principal); M81.0 Age-related osteoporosis without current pathological fracture
CPT/HCPCS: 36415; 80061; 80076; 82306; 82310; 83735; 83970; 84100; 84443; 85025

== ENCOUNTER → 2023-02-13 | Outpatient (CLI) | payer OTHER, SELFPAY ==
--- NOTE | 2023-02-13 09:24 | BD_ITS ---
STUDY: DUAL ENERGY X-RAY ABSORPTIOMETRY / DXA REASON FOR EXAM: Female, 52 years old. 733.13Collapse of vertebrae BONE DENSITY REASON FOR EXAM TECHNIQUE: Bone Mineral Density (BMD) measurements of lumbar spine. COMPARISON: None. FINDINGS: A lateral view of the thoracic and lumbar spine was obtained. No evidence of vertebral compression. BD/Vert Fx Assess/Lat Bone Den IMPRESSION: No evidence of vertebral compression. Reference Information: The T-score is the number of standard deviations above or below the standard which is normal for young adults at their peak bone mineral density. The World Health Organization (WHO) interprets the T-scores as follows: Above -1 Normal bone density Between -1 and -2.5 Osteopenia Equal to / or below -2.5 Osteoporosis As a practical clinical guideline, osteopenia may be graded as follows: Mild -1 through -1.5 Moderate -1.6 through -2.0 Severe -2.1 through -2.4 The Z-score is the number of standard deviations above or below age-matched controls. A Z-score of less than -1.5 would be considered abnormal. References: 1. NIH Osteoporosis and Related Bone Diseases www osteo.org 2. International Society for Clinical Densitometry www iscd.org 3. National Osteoporosis Foundation www nof.org Electronically Signed: Santiago Vargas MD at 12:35 EDT ,
== END | disposition home or self-care (01) ==
LOC: OPBD 09:21
PROVIDERS: PCP Internal Medicine; Referring Provider Internal Medicine; Visit Provider Internal Medicine
DX: M81.0 Age-related osteoporosis without current pathological fracture (principal)
CPT/HCPCS: 77086

== ENCOUNTER → 2024-02-11 | Outpatient (CLI) | payer OTHER, SELFPAY ==
--- NOTE | 2024-02-11 08:56 | BI_ITS ---
MAMMOGRAPHY - BILATERAL SCREENING REASON FOR EXAM: Female, 53 years old. Routine annual screening examination. PERTINENT HISTORY: Non-contributory. TECHNIQUE: Digital bilateral breast luis felipe (3D mammographic acquisition) in the CC and MLO projections. 2-D mediolateral oblique (MLO) and craniocaudad (CC) views of both breasts were obtained. CAD: Full Field Digital Mammography with Computer Added Detection was performed. COMPARISON: Comparison is made with prior study December 12, 2022 and November 29, 2021. FINDINGS: Breast Composition: The breasts are heterogeneously dense, which may obscure small masses. There are no dominant masses or suspicious calcifications. No other significant abnormalities are identified. There has been no significant change since the prior study. BI/SCRN MAMM (CAD)W/LUIS FELIPE BILAT IMPRESSION: Stable bilateral screening mammogram. Yearly follow-up mammogram recommended. (A) ASSESSMENT CATEGORY: BIRADS Category 1: Negative. A letter regarding these results will be sent to the patient by the facility within 30 days. Approximately 10% of breast cancers are not detected by mammography. A normal mammogram should not delay biopsy of a clinically suspicious abnormality. [id number] Electronically Signed: Santiago Vargas MD at 10:50 EDT ,
== END | disposition home or self-care (01) ==
LOC: OPBI 08:56
PROVIDERS: PCP Internal Medicine; Referring Provider Obstetrics & Gynecology; Visit Provider Obstetrics & Gynecology
DX: Z12.31 Encounter for screening mammogram for malignant neoplasm of breast (principal)
CPT/HCPCS: 77063; 77067

== ENCOUNTER → 2024-03-02 | Outpatient (CLI) | payer OTHER, SELFPAY ==
--- NOTE | 2024-03-02 14:57 | RAD_ITS ---
STUDY: X-RAY - PELVIS AND RIGHT HIP REASON FOR EXAM: Female, 53 years old. RIGHT HIP PAIN TECHNIQUE: 3 views of the pelvis and right hip. COMPARISON: None. FINDINGS: There is a non-specific bowel gas pattern. Normal visualized soft tissue structures. Normal bilateral iliac wings, sacroiliac joints and visualized sacrum. Normal bilateral superior and inferior pubic rami. There are degenerative changes of the pubic symphysis with articular narrowing and sclerosis. Normal bilateral ischial tuberosities. Normal visualized femoral head. There is a benign 7 mm bone island in the right superior acetabulum. Normal hip joint. There is no demonstrated acute fracture. RAD/HIP, UNI W/ Pelvis 2-3 Views IMPRESSION: Pubic symphysis arthrosis. No demonstrated acute fracture. Electronically Signed: Tk Davidson MD at 15:58 EST ,
== END | disposition home or self-care (01) ==
LOC: MTRAD 14:56
PROVIDERS: PCP Internal Medicine; Referring Provider Anesthesiology Pain Medicine; Visit Provider Anesthesiology Pain Medicine
DX: M25.551 Pain in right hip (principal)
CPT/HCPCS: 73502

== ENCOUNTER → 2024-12-02 | Outpatient (CLI) | payer OTHER, SELFPAY ==
[2024-12-02 10:24] LABS: Hematocrit 41.0 % (37-47); Hemoglobin 13.8 g/dL (12.0-15.0); Immature Granulocytes Count 0.000 X10^3/uL (0.0-0.0); Mean Corp Hgb Conc 33.7 g/dL (32-36); Mean Corpuscular Volume 93.8 fL (81-99); Mean Platelet Vol. 10.1 fl (6.2-12.0); NRBC Flagged by Analyzer 0 % (0-5); Platelet Count 365 K/mm3 (150-450); RBC Distribution Width CV 11.6 % (11.6-14.6); RBC Distribution Width SD 39.8 fl (35.1-43.9); Red Blood Count 4.37 M/mm3 (4.2-5.4); White Blood Count 5.3 K/mm3 (4.4-11.0)
[2024-12-02 11:00] LABS: AST(SGOT) 28 U/L (<=31); Alanine Aminotransfer ALT/SGPT 42 U/L (<=34); Albumin, Serum 4.8 g/dL (3.5-5.0); Alkaline Phosphatase 72 U/L (35-104); Anion Gap 15 (5-15); BUN 12 mg/dL (4-19); BUN/Creat Ratio 15.5 RATIO (10-20); Calcium,Total 9.4 mg/dL (7.6-11.0); Carbon Dioxide 20.7 mmol/L (21.0-32.0); Chloride 105 mmol/L (98-108); Cholesterol 148 mg/dL (<=200); Globulin 2.8 g/dL (2.2-4.2); Glucose 84 mg/dL (70-99); Low Density Lipoprotein Calc. 54 mg/dL; Potassium 3.5 mmol/L (3.3-5.1); Triglycerides 214 mg/dL; Very Low Density Lipoprotein 43 mg/dL (5-40); Vitamin D,25 Hydroxy 49.3 ng/mL (30-100); cholesterol:hdl ratio screen 2.88
== END | disposition home or self-care (01) ==
LOC: MTLAB 07:10
PROVIDERS: PCP Internal Medicine; Referring Provider Internal Medicine; Visit Provider Internal Medicine
DX: E55.9 Vitamin D deficiency, unspecified (principal); E78.5 Hyperlipidemia, unspecified; E78.1 Pure hyperglyceridemia; R10.9 Unspecified abdominal pain
CPT/HCPCS: 36415; 80053; 80061; 82306; 84443; 85025

== ENCOUNTER → 2025-02-11 | Outpatient (CLI) | payer OTHER, SELFPAY | END | disposition home or self-care (01) | LOC: OPBI 10:07 | PROVIDERS: PCP Internal Medicine; Referring Provider Obstetrics & Gynecology; Visit Provider Obstetrics & Gynecology | DX: Z12.31 Encounter for screening mammogram for malignant neoplasm of breast (principal) | CPT/HCPCS: 77063; 77067 ==